=== PATIENT | male | born 1960 ===

== ENCOUNTER 2017-07-31 10:57 | Inpatient (IN) | payer MEDICAID ==
[~2017-07-31] VITALS: Ht 185.4 cm; Wt 121.9 kg
[2017-07-31 11:33] VITALS: BP 106/68
--- NOTE | 2017-07-31 11:54 | PM&R Post Admission Assessment ---
Post Admission Physician Asses The preadmission screen agrees with the post admission assessment that the patient is a good candidate for inpatient rehabilitation. The patient will have a comprehensive program of inpatient rehabilitation with a goal of maximizing level of functional independence prior to discharge home with family. The patient will have PT/OT ninety minutes per day, each discipline, five days a week for gait, strengthening, conditioning, balance, ADLs, any patient/family/caregiver training as necessary. Speech therapy to do cognitive assessment and treat as indicated. Rehabilitation nursing to assist with bowel, bladder, skin, wound care, medication administration, pain management. Coil Placer to assist with discharge planning, community reentry. SCD's for DVT prophylaxis as appropriate as the patient has a left BKA.. He appears to be well motivated to participate in three hours of therapy a day. He should be able to tolerate three hours of therapy a day from a medical and surgical standpoint. He should benefit from the three hours of therapy a day. He has a reasonable discharge plan, reasonable discharge rehabilitation goals and a supportive family. He has various comorbidities that need to be closely monitored with medications and treatments adjusted on a daily basis as needed. These include: PVD s/p RT BKA CAD s/p TX AAA HTN Tobaccoism Bilateral Corotid artery stenosis Barriers to discharge for this patient who had been independent prior to this are for him to be modified independent to supervision for ADLs and mobility skills prior to discharge home with [family], so as to lessen the burden of the caregivers. Risks for this patient include: 1. Fall 2. Fracture 3. DVT 4. Pulmonary embolism 5. Wound infection 6. Skin breakdown 7. Contractures 8. Poorly controlled pain 9. Urinary retention 10. UTI 11. Respiratory infection 12. Aspiration 13. Recurrent angina 14. Poorly controlled HTN Estimated Length of Stay: 17 days Prognosis: Rehab prognosis appears good for goal of discharge home with family modified independent to supervision for ADLs and mobility skills at the w/c level of function due to rt BKA. PAUL DODSON MD Jul 31, 2017 11:54
--- NOTE | 2017-07-31 12:13 | Physical Therapy Evaluation ---
PT Evaluation-General Medical Diagnosis Admission Date Jul 31, 2017 at 11:31 Medical Diagnosis: CABG s/p [place] Onset Date: Jul 25, 2017 Therapy Diagnosis Therapy Diagnosis: Impaired functional mobility and activity tolerance Precautions Precautions/Isolations: Fall Prevention, Standard Precautions Sternal precautions: no pushing, pulling, lifting, or raising arms overheard. Referral Physician: Kevin Jain MD Reason for Referral: Evaluation/Treatment Medical History Additional Medical History PAST MEDICAL HISTORY: Peripheral vascular disease with claudication, status post fem-fem bypass by Dr. Worrell on 12/01/2014, abdominal aortic aneurysm without rupture, hypertension, tobaccoism, bilateral carotid artery stenosis, chest pain due to myocardial ischemia, unstable angina pectoris. Right AKA Reviewed History: Yes Social History Home: Apartment Current Living Status: Alone Entry Into Home: Level Entry PT Steps Into Home: 0 PT Steps Inside Home: 0 Pt owns a cat Prior/Core FIM Prior Level of Function Functional [place] Measure 0=Not Assessed/NA 4=Minimal Assistance 1=Total Assistance 5=Supervision or Setup 2=Maximal Assistance 6=Modified [place] 3=Moderate Assistance 7=Complete [place] Bed Mobility: 6 Transfers (B,C,W/C) (FIM): 6 Gait: 6 Locomotion: 6 Pt utilizes axillary and forearm crutches due to above knee amputation at the age of 15. PT Evaluation-Current Subjective Pt is sitting in [facility] in room pre eval and c/o pain at 7/10 and reports that it will increase once pain medication wears off. Pt agrees to PT. Pain Numeric Pain Scale: 7 Location Body Site: Chest Pt/Family Goals [place] at home Objective Patient Orientation: Normal For Age ROM/Strength ROM Lower Extremities Grossly WFL bilaterally Strenght Lower Extremities LLE: 5/5 grossly RLE: Hip flexion not assessed due to pain Neuromuscular (Tone, Coordination, Reflexes) NT Sensory Vision: Wears Glasses Hearing: Functional Sensation Left Lower Extremity: Impaired Sensation Lower Extremities Pt demonstrates numbness in the L5 dermatome when assessed at the anterior sharp Transfers Functional [place] Measure 0=Not Assessed/NA 4=Minimal Assistance 1=Total Assistance 5=Supervision or Setup 2=Maximal Assistance 6=Modified [place] 3=Moderate Assistance 7=Complete IndependenceIRFPAI Quality Coding Scale 6 Independent with activity with or without an assistive device 5 Patient requires set up or clean up by helper. Patient completes activity by themselves 4 Supervision or touching assist (CGA). [place] provide cues , steadying assist 3 The helper provides less than half the effort to complete the activity 2 The helper provides more than half the effort to complete the activity 1 Dependent. The helper does all the effort to complete an activity 7 Patient refused to complete or attempt activity 9 The patient did not perform the activity before the current illness or injury 88 Not attempted due to Medical conditions or safety concerns Transfers (B, C, W/C) (FIM): 4 Scootin Rollin Roll Left to Right (QC): 4 Supine to/from Sit: 5 Sit to/from Stand: 5 Sit to Lying (QC): 4 Lying to Sitting/Side of Bed(Q: 4 Sit to Stand (QC): 4 Chair/Jhk-ez-Dcgnr Xfer(QC): 4 Pt requires SBA for all bed mobility and transfers. Pt refuses to be touched to aid in assistance. Pt understands sternal precautions but does not follow them. Gait Does the Patient Walk?: No and Walking Goal NOT indicated Distance (FIM): 0=does not occure Walk 10 feet (QC): 88 Walk 50 ft with 2 Turns(QC): 88 Walk 150 ft (QC): 88 Walking 10ft/uneven surface-QC: 88 Wheelchair Training Does the Pt Use a Wheelchair?: Yes Wheelchair (FIM): 5 Wheelchair Distance (FIM): 3=150 ft Distance: 150 feet Wheelchair Level of Assist: 5 Wheel 50 ft with 2 turns (QC): 5 Wheel 150 ft (QC): 5 Type of Wheelchair: Manual Stairs 1 Step (curb) (QC): 88 4 Steps (QC): 88 12 Steps (QC): 88 If not tested on admit;explain Sternal precautions limit patient from using stairs and pt reports pain at 7/10 Balance Sitting Static: Normal Sitting Dynamic: Normal Standing Static: Good Standing Dynamic: Good Picking up an Object (QC): 88 Assessment/Needs Pt requires frequent breaks when propelling WCH due to pain and fatigue. Pt reports increased pain. Pt refuses aid from PT and does not follow precautions during transfers and bed mobility. Rehab Potential: Fair PT Short Term Goals Short Term Goals Time Frame: Aug 07, 2017 Transfers (B,C,W/C) (FIM): 6 Wheelchair (FIM): 6 Wheelchair Distance: 200 feet Wheelchair Level of Assist: 6 PT Jail Goals Jail Goals PT Calibration Checker Goals Time Frame: Aug 14, 2017 Transfers (B,C,W/C) (FIM): 6 Sit to Lying (QC): 6 Lying-Sitting on Side/Bed(QC): 6 Sit to Stand (QC): 6 Rollin Roll Left to Right (QC): 6 Chair/Egq-sq-Kycbc Xfer(QC): 6 Car Transfer (QC): 6 Does the Patient Walk: Yes Gait (FIM): 2 Distance: 50' Walk 10 feet (QC): 6 Walk 10ft-Uneven Surface(QC): 6 Walk 50ft with 2 Turns (QC): 6 Gait Level of Assist: 6 Does the Pt use WC or Scooter?: Yes Wheelchair (FIM): 6 Distance: 300 feet Wheelchair Level of Assist: 6 Wheel 50 feet with 2 turns (QC: 6 PT Plan Problem List Problem List: Activity Tolerance, Functional Strength, Safety, Balance, Gait, Transfer, Bed Mobility, ROM Treatment/Plan Treatment Plan: Continue Plan of Care Treatment Plan: Bed Mobility, Education, Functional Activity Agustín, Functional Strength, Group Therapy, Gait, Safety, Therapeutic Exercise, Transfers Treatment Duration: Aug 21, 2017 Frequency: At least 5 of 7 days/Wk (IRF) Estimated Hrs Per Day: 1.5 hours per day Patient and/or Family Agrees t: Yes Safety Risks/Education Patient Education: Transfer Techniques, Reviewed Precautions, Correct Positioning, W/C Management, Disease Process, Safety Issues Teaching Recipient: Patient Teaching Methods: Demonstration, Discussion Response to Teaching: Unable to Return Demonstration, Reinforcement Needed Discharge Recommendations Plan Pt will perform bed mobility and transfer training, functional mobility and activity tolerance training, balance training and education, and gait and stair training in order to promote independence at home. Therapy D/C Recommendations: Home w/ Family Support Time/GCodes Time In: 1130 Time Out: 1200 Total Billed Treatment Time: 30 Total Billed Treatment 1 visit 30 min JUDIE MALDONADO PT Jul 31, 2017 12:13
[2017-07-31] MEDS: HYDROcodone/APAP 10 MG/325 MG (LORTAB) TAB PO PRN ×2 (13:23→19:11)
[2017-07-31] MEDS: IBUPROFEN 800 MG (MOTRIN) TAB PO SCH ×3 (14:45→23:33)
--- NOTE | 2017-07-31 14:58 | Physical Therapy Daily Note ---
PT Daily Note-Current Subjective Agreeable to PT. Reports He is tired this afternoon. Mental Status Patient Orientation: Person, Place, Time, Situation Transfers Functional [place] Measure 0=Not Assessed/NA 4=Minimal Assistance 1=Total Assistance 5=Supervision or Setup 2=Maximal Assistance 6=Modified [place] 3=Moderate Assistance 7=Complete IndependenceIRFPAI Quality Coding Scale 6 Independent with activity with or without an assistive device 5 Patient requires set up or clean up by helper. Patient completes activity by themselves 4 Supervision or touching assist (CGA). [place] provide cues , steadying assist 3 The helper provides less than half the effort to complete the activity 2 The helper provides more than half the effort to complete the activity 1 Dependent. The helper does all the effort to complete an activity 7 Patient refused to complete or attempt activity 9 The patient did not perform the activity before the current illness or injury 88 Not attempted due to Medical conditions or safety concerns Sit to supine with use of bedrail with SBA. Exercises Seated Therapy Exercises: Ankle pumps, Long arc quads, Hip flexion Seated Reps: 15 (To faciliate LE strength and circulation LE. ) Treatments Co treatment with OT for 30 minutes to complete ADL's and self care; PT addressed functional sit to stand transfers while OT addressed cleansing of [place] area . Worked on seated trunk control and balance as well. Assessment Pt requires frequent cues for safety and awareness of precautions. Pt seems to be a bit impulsive. Pt is motivated and cooperative with therapy. PT Short Term Goals Short Term Goals Time Frame: Aug 07, 2017 Transfers (B,C,W/C) (FIM): 6 Wheelchair (FIM): 6 Wheelchair Distance: 200 feet Wheelchair Level of Assist: 6 PT Senior Care Goals Lubrication Supervisor Goals PT Senior Care Goals Time Frame: Aug 21, 2017 Transfers (B,C,W/C) (FIM): 6 Sit to Lying (QC): 6 Lying-Sitting on Side/Bed(QC): 6 Sit to Stand (QC): 6 Rollin Roll Left to Right (QC): 6 Chair/Bik-st-Rcdvm Xfer(QC): 6 Car Transfer (QC): 6 Does the Patient Walk: Yes Gait (FIM): 6 Distance: 150 feet Walk 10 feet (QC): 6 Walk 10ft-Uneven Surface(QC): 6 Walk 50ft with 2 Turns (QC): 6 Walk 150 ft (QC): 6 Gait Level of Assist: 6 Gait Assistive Device: Crutches Forearm, Crutches Does the Pt use WC or Scooter?: Yes Wheelchair (FIM): 6 Distance: 300 feet Wheelchair Level of Assist: 6 Wheel 50 feet with 2 turns (QC: 6 Stairs (FIM): 2 # of Steps: 4 1 Step (curb) (QC): 6 4 Steps (QC): 6 12 Steps (QC): 6 Stairs Level Of Assist: 6 Picking up an Object (QC): 6 PT Plan Problem List Problem List: Activity Tolerance, Functional Strength, Safety, Balance, Transfer, Bed Mobility Treatment/Plan Treatment Plan: Continue Plan of Care Treatment Plan: Bed Mobility, Education, Functional Activity Agustín, Functional Strength, Group Therapy, Gait, Safety, Therapeutic Exercise, Transfers Treatment Duration: Aug 21, 2017 Frequency: At least 5 of 7 days/Wk (IRF) Estimated Hrs Per Day: 1.5 hours per day Patient and/or Family Agrees t: Yes Safety Risks/Education Patient Education: Transfer Techniques, Safety Issues Teaching Recipient: Patient Teaching Methods: Demonstration, Discussion Response to Teaching: Reinforcement Needed Time/GCodes Time In: 1400 Time Out: 1445 Total Billed Treatment Time: 45 Total Billed Treatment visit FA 45 BARNEY ROLLINS PT Jul 31, 2017 14:58
--- NOTE | 2017-07-31 15:03 | Occupational Therapy Eval ---
OT Evaluation-General/PLF Medical Diagnosis Admission Date Jul 31, 2017 at 11:31 Medical Diagnosis: CABG s/p [place] Onset Date: Jul 25, 2017 Therapy Diagnosis Therapy Diagnosis: Weakness, Decreased ADL skills Precautions Precautions/Isolations: Fall Prevention, Standard Precautions Weight Bear Status Weight Bearing Restriction: Weight Bearing/Tolerated Referral Physician: Kevin Jain MD Referral Reason: Activity Tolerance, Self Care, Evaluation/Treatment, Strengthening/ROM Medical History Additional Medical History AAA, anxiety, depression, crushed vertebrae, amputation of right LE, injury to right hand. Current History Pt. had blockage. Received CABG x 3 Reviewed History: Yes Social History Home: Apartment Current Living Status: Alone Entry Into Home: Level Entry Steps Into Home: 0 Steps Inside Home: 0 ADL-Prior Level of Function ADL PLOF Comments Pt. was independent with daily tasks previous to this surgery. Pt. uses forearm crutches typically. 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 Drive Self: Yes OT Current Status Subjective Pt. reports pain in right upper thigh from incision and chest incision. Appearance Pt. in bed. Agrees to work with OT. Mental Status/Objective Patient Orientation: Person, Place, Time, Situation Current Glasses/Contacts: Yes Hand Dominance: Right Upper Extremity ROM NT due to sternal precautions. Upper Extremity Strength NT due to sternal precautions. Pt. has limited ROM to right hand due to old accident. However, he uses right hand for all purposes. ADL-Treatment Functional [place] Measure 0=Not Assessed/NA 4=Minimal Assistance 1=Total Assistance 5=Supervision or Setup 2=Maximal Assistance 6=Modified [place] 3=Moderate Assistance 7=Complete IndependenceIRFPAI Quality Coding Scale 6 Independent with activity with or without an assistive device 5 Patient requires set up or clean up by helper. Patient completes activity by themselves 4 Supervision or touching assist (CGA). [place] provide cues , steadying assist 3 The helper provides less than half the effort to complete the activity 2 The helper provides more than half the effort to complete the activity 1 Dependent. The helper does all the effort to complete an activity 7 Patient refused to complete or attempt activity 9 The patient did not perform the activity before the current illness or injury 88 Not attempted due to Medical conditions or safety concerns Bathing (FIM): 3 (Mod assist overall to spongebathe to thoroughly wash all parts.) Shower/Bathe Self (QC): 3 Lower Body Dressing (FIM): 1 (Dependent to doff/don left sock.) Lower Body Dressing (QC): 1 On/Off Footwear (QC): 1 Transfers (B, C, W/C) (FIM): 4 (CGA to stand holding bedrail and wheelchair.) Other Treatments OT/PT completed partial co-tx due to pt fatigue level. Ot focused on ADL skills while PT focused on transfer training and mobility. Co-treat lasted 1400 -1430. Education OT Patient Education: Modified ADL techniques, Progress toward Goal/Update tx plan, Purpose of tx/functional activities, Reviewed precautions, Rehab process, Transfer techniques Teaching Recipient: Patient Teaching Methods: Demonstration, Discussion Response to Teaching: Verbalize Understanding, Return Demonstration OT Short Term Goals Short Term Goals Time Frame: Aug 07, 2017 Eating(FIM): 5 Grooming(FIM): 5 Bathing(FIM): 4 Upper Body Dressing(FIM): 5 Lower Body Dressing(FIM): 4 Toileting(FIM): 4 Transfers (B,C,W/C) (FIM): 6 Toilet/Commode Transfer(FIM): 4 Shower Transfer(FIM): 4 Additional Short Term Goals: 1-Demonstrate ADL Tasks, 2-Verbalize Understanding , 3-ImproveStrength/Agustín 1=Demonstrate adherence to instructed precautions during ADL tasks. 2=Patient will verbalize/demonstrate understanding of assistive devices/ modifications for ADL. 3=Patient will improve strength/tolerance for activity to enable patient to perform ADL's. OT Nursing Home Goals Building Carpenter Goals Time Frame: Aug 21, 2017 Eating (FIM): 6 Eating (QC): 6 Groomin Oral Hygiene (QC): 6 Bathing(FIM): 5 Shower/Bathe Self (QC): 5 Upper Body Dressing(FIM): 6 Upper Body Dressing (QC): 6 Lower Body Dressing(FIM): 6 Lower Body Dressing (QC): 6 On/Off Footwear (QC): 6 Toileting(FIM): 6 Toileting Hygiene (QC): 6 Transfers (B,C,W/C) (FIM): 6 Toilet/Commode Transfer(FIM): 6 Toilet/Commode Transfer (QC): 6 Shower Transfer(FIM): 5 Additional Goals: 1-Demonstrate ADL Tasks, 2-Verbalize Understanding, 3- ImproveStrength/Agustín 1=Demonstrate adherence to instructed precautions during ADL tasks. 2=Patient will verbalize/demonstrate understanding of assistive devices/ modifications for ADL. 3=Patient will improve strength/tolerance for activity to enable patient to perform ADL's. OT Education/Plan Problem List/Assessment Assessment: Decreased Activ Tolerance, Dependent Transfers, Impaired Bed Mobility, Impaired Funct Balance, Impaired I ADL's, Impaired Self-Care Skills, Restricted Funct UE ROM Discharge Recommendations Plan/Recommendations: Continue POC Therapy D/C Recommendations: Home Independently, Occupational Therapy Home Care Target Placement Home with home health care. Treatment Plan/Plan of Care Treatment,Training & Education: Yes Patient would benefit from OT for education, treatment and training to promote independence in ADL's, mobility, safety and/or upper extremity function for ADL' s. Plan of Care: ADL Retraining, Functional Mobility, Group Exercise/Act as Ind, UE Funct Exercise/Act Treatment Duration: Aug 21, 2017 Frequency: At least 5 of 7 days/Wk (IRF) Estimated Hrs Per Day: 1.5 hours per day Agreement: Yes Rehab Potential: Good Time/GCodes Start Time: 13:00 Stop Time: 14:30 Total Time Billed (hr/min): 90 Billed Treatment Time 1, EVM x 30minutes, ADL x 60minutes BRUCE FUENTES OT Jul 31, 2017 15:03
--- NOTE | 2017-07-31 15:24 | ST Cognitive Linguistic Eval ---
Speech Evaluation-General Medical Diagnosis CABG s/p [place] Onset Date: Jul 25, 2017 Therapy Diagnosis Therapy Diagnosis: Cognitive Linguistic Skills WNL Precautions Precautions/Isolations: Fall Prevention, Standard Precautions Referral Referring Physician: Dr. Kevin Jain Reason for Referral: Evaluation/Treatment Cognitive Evaluation Medical History Reviewed History: Yes Social History Current Living Status: Alone Speech PLF-Current Status Prior Level of Function The patient denied prior challenges with his speech, language, or cognition. Subjective The patient was seated upright in bed upon entrance. The patient greeted the clinician appropriately and was agreeable to participation in the cognitive evaluation. Language Eval: Auditory Comprehends Simple Yes/No Ques: Functional Indent/Objects [place]: Functional Ident/Pics in [place]: Functional Follows 1-Step Commands: Functional Follows Complex Directions: Functional Follows General Conversations: Functional Language Eval: Verbal Language Completes Spontaneous Greeting: Functional Produces Auto, Serial Info: Functional Imitates Simple Words/Phrases: Functional Word Finding: Functional Requests Basic Needs: Functional States Basic Personal Info: Functional Expresses Complex Ideas: Functional Cognitive Patient Orientation The patient was independently oriented to self, location, month, day of week, and year. Objective Cognitive Domain Attention: WNL Memory: WNL Problem Solving: Functional Objective Impression The patient demonstrated cognitive linguistic skills WNL. Communication/Social Cognition Comprehension: 6 Expression: 6 Social Interaction: 6 Problem Solvin Memory: 6 Speech Patient Assess Expression of Ideas/Wants: Expression (4) Understanding [place] Content: Understands (4) Brief Interview-Mental Status: Yes Repetition of Three Words: Three (3) Temporal Orientation: Year: Correct (3) Temporal Orientation: Month: Accurate within 5 days(2) Temporal Orientation: Day: Correct (1) Recall : Wear to say "Sock": Yes,after cueing (1) Recall : Color: Yes, no cue required (2) Recall : Bed: Yes, no cue required (2) Speech-Plan Treatment Plan Speech Therapy Treatment Plan: Discontinue ST Evaluation, only. Frequency: Modified Program (IRF) Estimated Hrs Per Day: Other Rehab Potential: Good Safety Risks/Education Teaching Recipient: Patient Teaching Methods: Discussion Response to Teaching: Verbalize Understanding Education Topics Provided: Results, Recommendations, Plan of Care Time Speech Therapy Time In: 15:03 Speech Therapy Time Out: 15:18 Total Billed Time: 15 Billed Treatment Time 1S[address] ST Feb 15, 2018 15:24
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
[2017-07-31] MEDS ORDERED: MUPIROCIN 2% OINT 22 GM (BACTROBAN) TUBE TOP PRN (16:45)
[2017-07-31] MEDS ORDERED: INFLUENZA TRIvalent 2017-2018 0.5 ML/45 MCG SYR IM ONE (16:45)
[2017-07-31 18:15] VITALS: BP 111/72
[2017-07-31] MEDS: ZOLPIDEM 5 MG (AMBIEN) TAB PO SCH (20:49)
[2017-07-31] MEDS: meTOprolol TARTRATE 25 MG (LOPRESSOR) TABLET PO SCH (20:49)
[2017-07-31] MEDS: ATORVASTATIN 40 MG (LIPITOR) TABLET PO SCH (20:49)
[2017-07-31 20:51] VITALS: BP 124/64
[2017-08-01] MEDS: HYDROcodone/APAP 10 MG/325 MG (LORTAB) TAB PO PRN ×4 (02:41→16:41)
[2017-08-01 06:03] VITALS: BP 126/74
[2017-08-01] MEDS: IBUPROFEN 800 MG (MOTRIN) TAB PO SCH ×3 (06:13→18:00)
[2017-08-01] MEDS: CLOPIDOGREL 75 MG (PLAVIX) TABLET PO SCH (07:55)
[2017-08-01] MEDS: meTOprolol TARTRATE 25 MG (LOPRESSOR) TABLET PO SCH ×2 (07:55→20:58)
[2017-08-01] MEDS: lisINopril 20 MG (PRINIVIL) TABLET PO SCH (07:55)
[2017-08-01] MEDS: ASPIRIN E.C. 81 MG (ECOTRIN) TAB PO SCH (07:56)
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
--- NOTE | 2017-08-01 09:30 | PM & R (SOAP) Progress Note ---
Subjective Time Seen by Provider: 08:00 Subjective/Events-last exam Patient was seen in his room this AM Patient SBA for transfers patient reports no BM for several dyas will add bowel meds see orders. Review of Systems Musculoskeletal: other (sternotomy site pain) Objective Exam Last Set of Vital Signs Vital Signs Date Time Temp Pulse Resp B/P (MAP) Pulse Ox O2 Delivery O2 Flow Rate FiO2 08/01/17 08:56 Room Air 08/01/17 06:03 98.6 77 20 126/74 (91) 94 Capillary Refill : Less Than 3 Seconds I&O Intake and Output 08/01/17 00:00 Intake Total 400 ml Output Total 1050 ml Balance -650 ml Intake Oral 400 ml Output Urine Total 1050 ml Daily Weight Change Unsure General: Alert, Oriented X3, Cooperative, No Acute Distress HEENT: Atraumatic, PERRLA, EOMI, Mucous Memb Moist/[place] Neck: Supple, No JVD Lungs: Clear to Auscultation Heart: Regular Rate Abdomen: Normal Bowel Sounds, Soft, No Tenderness Extremities: Other (RT BKA) Skin: Other (Sternotomy site healing) Neuro: Other (Good strength but some guarding due to Sternotomy incision site) Assessment/Plan Assessment CAD s/p Cabg times 3 DR sheyla Hearnplin S/P NSTEMI TRaumatic amputaion rt BKA age 14 yo AAA without rupture HTN controlled Tobaccoism Bilateral Carotid Artery D Old rt hand injury Postop constipation Plan Continue PT/OT/Pain management /Wound care Sternotomy precautions Adjust bowel meds-see orders. PAUL DODSON MD Aug 01, 2017 09:30
[2017-08-01] MEDS ORDERED: MILK OF MAGNESIA 400 MG/5 ML 30 ML UDC PO PRN (09:45)
[2017-08-01] MEDS ORDERED: BISACODYL 10 MG SUPP (DULCOLAX) PR PRN (09:45)
--- NOTE | 2017-08-01 10:02 | Physical Therapy Daily Note ---
PT Daily Note-Current Subjective Pt. explains that he is frustrated by being so limited . Min pain c/o stating he only really hurts when he tries to straighten out his torso, has to go slowly Pain Numeric Pain Scale: 2 Location: Medial Location Body Site: Chest (incisional) Pain Description: Dull Mental Status Patient Orientation: Normal For Age Transfers Functional [place] Measure 0=Not Assessed/NA 4=Minimal Assistance 1=Total Assistance 5=Supervision or Setup 2=Maximal Assistance 6=Modified [place] 3=Moderate Assistance 7=Complete IndependenceIRFPAI Quality Coding Scale 6 Independent with activity with or without an assistive device 5 Patient requires set up or clean up by helper. Patient completes activity by themselves 4 Supervision or touching assist (CGA). [place] provide cues , steadying assist 3 The helper provides less than half the effort to complete the activity 2 The helper provides more than half the effort to complete the activity 1 Dependent. The helper does all the effort to complete an activity 7 Patient refused to complete or attempt activity 9 The patient did not perform the activity before the current illness or injury 88 Not attempted due to Medical conditions or safety concerns Transfers (B, C, W/C) (FIM): 5 Scootin Rollin Supine to/from Sit: 6 Sit to/from Stand: 5 Bed to/from Chair: 5 SPTs bed tp w/c x3, SBA Gait Training Does the Patient Walk?: No and Walking Goal NOT indicated Gait (FIM): 1 Wheelchair Training Does the Pt Use a Wheelchair?: Yes Wheelchair (FIM): 5 Wheelchair Distance: 3=150 ft Wheelchair Level of Assist: 5 Type of Wheelchair: Manual Exercises Supine Ex: Ankle pumps, Quad Set, Rolling, Glut sets, Heel Slides, Short Arc Quads, Scooting, Straight leg raise, Hip abd/add Supine Reps: 20 Treatments pt. in flexed trunk position in bed, worked on slowly coming to near full supine , 7degrees flexion at HOB with good tolerance Assessment Current Status: Good Progress needs many reminders re: safety and restrictions for UE use PT Short Term Goals Short Term Goals Time Frame: Aug 07, 2017 Transfers (B,C,W/C) (FIM): 6 Wheelchair (FIM): 6 Wheelchair Distance: 200 feet Wheelchair Level of Assist: 6 PT Certified Maintenance Welder Goals Certified Maintenance Welder Goals PT Certified Maintenance Welder Goals Time Frame: Aug 14, 2017 Transfers (B,C,W/C) (FIM): 6 Sit to Lying (QC): 6 Lying-Sitting on Side/Bed(QC): 6 Sit to Stand (QC): 6 Rollin Roll Left to Right (QC): 6 Chair/Ntz-tv-Jsteo Xfer(QC): 6 Car Transfer (QC): 6 Does the Patient Walk: Yes Gait (FIM): 2 Distance: 50' Walk 10 feet (QC): 6 Walk 10ft-Uneven Surface(QC): 6 Walk 50ft with 2 Turns (QC): 6 Gait Level of Assist: 6 Does the Pt use WC or Scooter?: Yes Wheelchair (FIM): 6 Distance: 300 feet Wheelchair Level of Assist: 6 Wheel 50 feet with 2 turns (QC: 6 PT Plan Treatment/Plan Treatment Plan: Continue Plan of Care Treatment Plan: Bed Mobility, Education, Functional Activity Agustín, Functional Strength, Group Therapy, Gait, Safety, Therapeutic Exercise, Transfers Treatment Duration: Aug 21, 2017 Frequency: At least 5 of 7 days/Wk (IRF) Estimated Hrs Per Day: 1.5 hours per day Patient and/or Family Agrees t: Yes Safety Risks/Education Patient Education: Transfer Techniques, Correct Positioning, W/C Management, Safety Issues Teaching Recipient: Patient Teaching Methods: Demonstration, Discussion Response to Teaching: Verbalize Understanding, Return Demonstration, Reinforcement Needed Time/GCodes Time In: 900 Time Out: 1000 Total Billed Treatment Time: 60 Total Billed Treatment 1,EX25m,FA15m,WC20m G Codes Necessary: CHRISTINA Ramachandran PTA Aug 01, 2017 10:02
--- NOTE | 2017-08-01 11:30 | Occupational Ther Daily Note ---
OT Current Status-Daily Note Subjective Pt alert, sitting in w/c. Pt is anxious about moving to much and hurting. Pt agreed to therapy. Mental Status/Objective Patient Orientation: Person, Place, Time, Situation Functional [place] Measure 0=Not Assessed/NA 4=Minimal Assistance 1=Total Assistance 5=Supervision or Setup 2=Maximal Assistance 6=Modified [place] 3=Moderate Assistance 7=Complete [place] ADL-Treatment Functional [place] Measure 0=Not Assessed/NA 4=Minimal Assistance 1=Total Assistance 5=Supervision or Setup 2=Maximal Assistance 6=Modified [place] 3=Moderate Assistance 7=Complete IndependenceIRFPAI Quality Coding Scale 6 Independent with activity with or without an assistive device 5 Patient requires set up or clean up by helper. Patient completes activity by themselves 4 Supervision or touching assist (CGA). [place] provide cues , steadying assist 3 The helper provides less than half the effort to complete the activity 2 The helper provides more than half the effort to complete the activity 1 Dependent. The helper does all the effort to complete an activity 7 Patient refused to complete or attempt activity 9 The patient did not perform the activity before the current illness or injury 88 Not attempted due to Medical conditions or safety concerns Eating (FIM): 7 (Per pt report, pt is able to set own self up and use regular utensils.) Eating (QC): 6 Grooming (FIM): 6 (Pt maneuvers w/c into bathroom and completes own grooming.) Oral Hygiene (QC): 6 Bathing (FIM): 4 (Sponge bath. Assist for lower legs and feet. Pt is able to stand to cleanse buttocks when holding onto stable surface. Pt cleanses all other area in sitting.) Bathing Location: L Arm, R Arm, L Upper Leg, R Upper Leg, Chest, Abdomen, Buttocks, Perineal Area Shower/Bathe Self (QC): 3 Upper Body (FIM): 5 (After set up, pt able to complete by self.) Upper Body Dressing (QC): 5 Lower Body Dressing (FIM): 4 (Due to inability to lean forward, pt requires min A to don/doff over feet. Pt able to stand and hike pants over hips with SBA.) Lower Body Dressing (QC): 3 Toileting (FIM): 5 (SBA to manipulate clothing, pt cleanses self in sitting.) Toileting Hygiene (QC): 4 Toilet/Commode Transfer (FIM): 5 (SBA using BSC to elevate toilet, grabbars and w/c.) Toilet Transfer (QC): 4 Pt refused shower at this time though is willing to complete sponge bath. Pt required modification to BSC due to increased pain when sitting on toilet from stitches on upper legs. Pt transferred from w/c to bed with SBA. After therapy , pt sitting EOB by self. Call light/phone in reach. All needs met in room. OT Short Term Goals Short Term Goals Time Frame: Aug 07, 2017 Eating(FIM): 5 Grooming(FIM): 5 Bathing(FIM): 4 Upper Body Dressing(FIM): 5 Lower Body Dressing(FIM): 4 Toileting(FIM): 4 Transfers (B,C,W/C) (FIM): 6 Toilet/Commode Transfer(FIM): 4 Shower Transfer(FIM): 4 Additional Short Term Goals: 1-Demonstrate ADL Tasks, 2-Verbalize Understanding , 3-ImproveStrength/Agustín 1=Demonstrate adherence to instructed precautions during ADL tasks. 2=Patient will verbalize/demonstrate understanding of assistive devices/ modifications for ADL. 3=Patient will improve strength/tolerance for activity to enable patient to perform ADL's. OT Correction Goals Correction Goals Time Frame: Aug 21, 2017 Eating (FIM): 6 Eating (QC): 6 Groomin Oral Hygiene (QC): 6 Bathing(FIM): 5 Shower/Bathe Self (QC): 5 Upper Body Dressing(FIM): 6 Upper Body Dressing (QC): 6 Lower Body Dressing(FIM): 6 Lower Body Dressing (QC): 6 On/Off Footwear (QC): 6 Toileting(FIM): 6 Toileting Hygiene (QC): 6 Transfers (B,C,W/C) (FIM): 6 Toilet/Commode Transfer(FIM): 6 Toilet/Commode Transfer (QC): 6 Shower Transfer(FIM): 5 Additional Goals: 1-Demonstrate ADL Tasks, 2-Verbalize Understanding, 3- ImproveStrength/Agustín 1=Demonstrate adherence to instructed precautions during ADL tasks. 2=Patient will verbalize/demonstrate understanding of assistive devices/ modifications for ADL. 3=Patient will improve strength/tolerance for activity to enable patient to perform ADL's. OT Education/Plan Discharge Recommendations Plan/Recommendations: Continue POC Treatment Plan/Plan of Care Patient would benefit from OT for education, treatment and training to promote independence in ADL's, mobility, safety and/or upper extremity function for ADL' s. Plan of Care: ADL Retraining, Functional Mobility, Group Exercise/Act as Ind, UE Funct Exercise/Act Treatment Duration: Aug 21, 2017 Frequency: At least 5 of 7 days/Wk (IRF) Estimated Hrs Per Day: 1.5 hours per day Agreement: Yes Rehab Potential: Good Time/GCodes Start Time: 10:00 Stop Time: 11:30 Total Time Billed (hr/min): 90 Billed Treatment Time 1 visit-ADL 4 (60 min) FA 2 (30 min) BARNEY PEREZ Aug 01, 2017 11:30
[2017-08-01] MEDS ORDERED: ASPI-983 PO (13:26)
[2017-08-01] MEDS ORDERED: IBUP-1780 PO (13:26)
[2017-08-01] MEDS ORDERED: ALPR0.5T7 PO (13:26)
[2017-08-01] MEDS ORDERED: HYDR-3820 PO (13:26)
[2017-08-01] MEDS ORDERED: AMLO1CAP9 PO (13:26)
[2017-08-01] MEDS ORDERED: RANI150T90 PO (13:26)
[2017-08-01] MEDS ORDERED: LISI-552 PO (13:26)
[2017-08-01] MEDS ORDERED: ZOLP10TA5 PO (13:26)
--- NOTE | 2017-08-01 14:49 | Therapy Group Daily Note ---
Therapy Daily Group Note Patient Education Topic Other List Below (safety, memory ans strategies) Exercises LE Seated Exercise, UE Exercise Other/Notes Pt. participated in group PT OT session this date. Pt. came to/from via w/c with min assist. Pts. 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 Focus of education was on memory and safety as well as activity using images . Pts. also lead LE and UE seated exercises using written illustrated exercise cards. Pts. shared their personal experiences with memory strategies etc. Pt. back to his room , with SBA to bed. Baker at hand. Start Time: 13:00 Stop Time: 14:20 Total Billed Treatment Time: 80 Total Billed Treatment 1,GRP CHRISTINA MARTINEZ IT PROGRAM ENGAGEMENT DIRECTOR Aug 01, 2017 14:49
[2017-08-01 18:50] VITALS: BP 111/74
[2017-08-01 20:54] VITALS: BP 126/62
[2017-08-01] MEDS: ATORVASTATIN 40 MG (LIPITOR) TABLET PO SCH (20:58)
[2017-08-01] MEDS: ZOLPIDEM 5 MG (AMBIEN) TAB PO SCH (20:58)
[2017-08-01] MEDS: SENNA W/DOCUSATE (SENOKOT S) TABLET PO SCH (20:58)
[2017-08-02] MEDS: IBUPROFEN 800 MG (MOTRIN) TAB PO SCH ×5 (00:17→23:11)
[2017-08-02] MEDS: HYDROcodone/APAP 10 MG/325 MG (LORTAB) TAB PO PRN ×3 (00:21→21:53)
[2017-08-02 04:00] VITALS: BP 124/79
[2017-08-02 05:40] VITALS: BP 124/79
[2017-08-02] MEDS ORDERED: NITROGLYCERIN 0.4 MG SL TABS BTL 25'S SL ONE (06:30)
[2017-08-02] MEDS: ASPIRIN E.C. 81 MG (ECOTRIN) TAB PO SCH (08:49)
[2017-08-02] MEDS: meTOprolol TARTRATE 25 MG (LOPRESSOR) TABLET PO SCH ×2 (08:49→21:46)
[2017-08-02] MEDS: CLOPIDOGREL 75 MG (PLAVIX) TABLET PO SCH (08:49)
[2017-08-02] MEDS: lisINopril 20 MG (PRINIVIL) TABLET PO SCH (08:49)
[2017-08-02] MEDS: SENNA W/DOCUSATE (SENOKOT S) TABLET PO SCH ×2 (08:49→21:46)
[2017-08-02 18:11] VITALS: BP 118/73
[2017-08-02] MEDS: ATORVASTATIN 40 MG (LIPITOR) TABLET PO SCH (21:46)
[2017-08-02] MEDS: ZOLPIDEM 5 MG (AMBIEN) TAB PO SCH (21:46)
[2017-08-02 21:47] VITALS: BP 140/70
[2017-08-03 05:37] VITALS: BP 105/68
[2017-08-03] MEDS: IBUPROFEN 800 MG (MOTRIN) TAB PO SCH ×4 (06:00→22:19)
[2017-08-03] MEDS: ASPIRIN E.C. 81 MG (ECOTRIN) TAB PO SCH (08:40)
[2017-08-03] MEDS: SENNA W/DOCUSATE (SENOKOT S) TABLET PO SCH ×2 (08:40→20:22)
[2017-08-03] MEDS: meTOprolol TARTRATE 25 MG (LOPRESSOR) TABLET PO SCH ×2 (08:40→20:22)
[2017-08-03] MEDS: lisINopril 20 MG (PRINIVIL) TABLET PO SCH (08:40)
[2017-08-03] MEDS: CLOPIDOGREL 75 MG (PLAVIX) TABLET PO SCH (08:40)
[2017-08-03] MEDS: HYDROcodone/APAP 10 MG/325 MG (LORTAB) TAB PO PRN ×2 (08:41→22:52)
[2017-08-03 17:35] VITALS: BP 115/72
[2017-08-03] MEDS: ATORVASTATIN 40 MG (LIPITOR) TABLET PO SCH (20:22)
[2017-08-03] MEDS: ZOLPIDEM 5 MG (AMBIEN) TAB PO SCH (20:22)
[2017-08-04] MEDS: IBUPROFEN 800 MG (MOTRIN) TAB PO SCH ×4 (05:33→23:40)
[2017-08-04 06:00] VITALS: BP 110/68
--- NOTE | 2017-08-04 08:25 | Progress Note (SOAP) ---
Subjective Time Seen by Provider: 08:25 Subjective/Events-last exam Non-ST elevated [place]. CABG. Patient feeling much better. Patient feels he is 50-60 percent better. Debility Objective Exam Vital Signs Date Time Temp Pulse Resp B/P (MAP) Pulse Ox O2 Delivery O2 Flow Rate FiO2 08/04/17 06:00 97.6 75 18 110/68 (82) 92 Room Air 08/03/17 21:00 Room Air 08/03/17 17:35 97.9 76 18 115/72 (86) 95 Room Air 08/03/17 09:08 Room Air I & O 08/04/17 07:00 Intake Total 1710 ml Output Total 625 ml Balance 1085 ml Capillary Refill : Less Than 3 Seconds General Appearance: No Apparent Distress, WD/WN Assessment/Plan Assessment/Plan Assess & Plan/Chief Complaint None elevated ST [place]. CABG. BKA right leg. History of tobacco usage. Previous AAA surgery. . 08/04/17. Non-ST elevated [place]. CABG. BKA right leg. History of tobacco usage. Previous AAA surgery. Patient feels he is improving Clinical Quality Measures DVT/VTE Risk/Contraindication: Risk Factor Score Per Nursin RFS Level Per Nursing on Admit: 4+=Very High YURY ELIZONDO DO Aug 04, 2017 08:25
[2017-08-04] MEDS: ASPIRIN E.C. 81 MG (ECOTRIN) TAB PO SCH (09:08)
[2017-08-04] MEDS: lisINopril 20 MG (PRINIVIL) TABLET PO SCH (09:08)
[2017-08-04] MEDS: SENNA W/DOCUSATE (SENOKOT S) TABLET PO SCH ×2 (09:09→20:25)
[2017-08-04] MEDS: CLOPIDOGREL 75 MG (PLAVIX) TABLET PO SCH (09:09)
[2017-08-04] MEDS: meTOprolol TARTRATE 25 MG (LOPRESSOR) TABLET PO SCH ×2 (09:09→20:25)
[2017-08-04] MEDS: ALPRAZolam 0.5 MG (XANAX) TAB PO PRN ×2 (12:20→23:50)
--- NOTE | 2017-08-04 12:23 | Physical Therapy Daily Note ---
PT Daily Note-Current Subjective Pt. agrees to Rx, but is very emotional and expressing his frustration this date. States repeatedly that he doesnt understand why he needs to be here and why he cant get up and use his crutches. Pt. cries and states he really cant cry like he'd like to b/c his chest hurts. Pt. states all he really has in this world is his cat and he wants to get back to his cat soon Pain Numeric Pain Scale: 5-Moderate Pain Location: Medial Location Body Site: Chest Comment: soreness per pt. Mental Status Patient Orientation: Person, Place, Time, Eyes Open, Situation Transfers Functional [place] Measure 0=Not Assessed/NA 4=Minimal Assistance 1=Total Assistance 5=Supervision or Setup 2=Maximal Assistance 6=Modified [place] 3=Moderate Assistance 7=Complete IndependenceIRFPAI Quality Coding Scale 6 Independent with activity with or without an assistive device 5 Patient requires set up or clean up by helper. Patient completes activity by themselves 4 Supervision or touching assist (CGA). [place] provide cues , steadying assist 3 The helper provides less than half the effort to complete the activity 2 The helper provides more than half the effort to complete the activity 1 Dependent. The helper does all the effort to complete an activity 7 Patient refused to complete or attempt activity 9 The patient did not perform the activity before the current illness or injury 88 Not attempted due to Medical conditions or safety concerns Transfers (B, C, W/C) (FIM): 5 Scootin Rollin Supine to/from Sit: 6 Sit to/from Stand: 5 Bed to/from Chair: 5 Gait Training Does the Patient Walk?: No and Walking Goal NOT indicated Wheelchair Training Does the Pt Use a Wheelchair?: Yes Wheelchair (FIM): 6 Wheelchair Distance: 3=150 ft (500x2) Wheelchair Level of Assist: 6 Type of Wheelchair: Manual up down ramp forward and back all indep. fig 8s x 7 all indep no incident Exercises Supine Ex: Ankle pumps, Quad Set, Rolling, Glut sets, Heel Slides, Short Arc Quads, Scooting, Straight leg raise, Hip abd/add Supine Reps: 15 Seated Therapy Exercises: Ankle pumps, Sit to stand, Long arc quads, Hip flexion Seated Reps: 15 Treatments SPT TRFs w/c top bed and back both left and right approach no LOB, SBA Assessment Current Status: Good Progress very emotional , states he has had panic ans PTSD for many years, requested "just a little Xanax" PT Short Term Goals Short Term Goals Time Frame: Aug 07, 2017 Transfers (B,C,W/C) (FIM): 6 Wheelchair (FIM): 6 Wheelchair Distance: 200 feet Wheelchair Level of Assist: 6 PT Group Home Goals Group Home Goals PT Group Home Goals Time Frame: Aug 14, 2017 Transfers (B,C,W/C) (FIM): 6 Sit to Lying (QC): 6 Lying-Sitting on Side/Bed(QC): 6 Sit to Stand (QC): 6 Rollin Roll Left to Right (QC): 6 Chair/Mlc-ph-Vcwej Xfer(QC): 6 Car Transfer (QC): 6 Does the Patient Walk: Yes Gait (FIM): 2 Distance: 50' Walk 10 feet (QC): 6 Walk 10ft-Uneven Surface(QC): 6 Walk 50ft with 2 Turns (QC): 6 Gait Level of Assist: 6 Does the Pt use WC or Scooter?: Yes Wheelchair (FIM): 6 Distance: 300 feet Wheelchair Level of Assist: 6 Wheel 50 feet with 2 turns (QC: 6 PT Plan Treatment/Plan Treatment Plan: Continue Plan of Care Treatment Plan: Bed Mobility, Education, Functional Activity Agustín, Functional Strength, Group Therapy, Gait, Safety, Therapeutic Exercise, Transfers Treatment Duration: Aug 21, 2017 Frequency: At least 5 of 7 days/Wk (IRF) Estimated Hrs Per Day: 1.5 hours per day Patient and/or Family Agrees t: Yes Safety Risks/Education Patient Education: Transfer Techniques, Correct Positioning, W/C Management, Disease Process, Safety Issues Teaching Recipient: Patient Teaching Methods: Demonstration, Discussion Response to Teaching: Verbalize Understanding, Return Demonstration long discussion regarding post CABG emotions and anxiety, stressing importance of positive thinking Time/GCodes Time In: 1130 Time Out: 1230 Total Billed Treatment Time: 60 Total Billed Treatment 1,WC25m,FA20m,EX15m G Codes Necessary: CHRISTINA Ramachandran SUPERVISOR SEAMING Aug 04, 2017 12:23
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
--- NOTE | 2017-08-04 14:33 | Therapy Group Daily Note ---
Therapy Daily Group Note Patient Education Topic Other List Below (purpose and practices of Rehab unit) Exercises LE Seated Exercise, UE Exercise, Other (coordination and core as well) Other/Notes Pt. participated in group PT OT session. Pt. came to from group in w/c indep . Pt. very friendly, very social and contributed well to discussion of rehab unit and expectations. Pts. all shared their place of , and favorite rainy day activity, this pt. states he likes a good movie or a nap. Seated U&L ther ex for core as well as coordination . Pt. participated in exercises that he could with his limitations and restrictions Pt. returned to room with SBA. In room with call taylor at hand up in chair. Start Time: 13:00 Stop Time: 14:05 Total Billed Treatment Time: 65 Total Billed Treatment 1,GRP CHRISTINA MARTINEZ PHOTOGRAPHIC HAND DEVELOPER Aug 04, 2017 14:33
[2017-08-04] MEDS: HYDROcodone/APAP 10 MG/325 MG (LORTAB) TAB PO PRN (15:39)
--- NOTE | 2017-08-04 15:50 | PM & R (SOAP) Progress Note ---
Subjective Time Seen by Provider: 14:30 Subjective/Events-last exam Patient was seen in his rrom this afternoon Patient SBA for transfers Incision sites healing well Objective Exam Last Set of Vital Signs Vital Signs Date Time Temp Pulse Resp B/P (MAP) Pulse Ox O2 Delivery O2 Flow Rate FiO2 08/04/17 09:00 Room Air 08/04/17 06:00 97.6 75 18 110/68 (82) 92 Capillary Refill : Less Than 3 Seconds I&O Intake and Output 08/04/17 00:00 Intake Total 1380 ml Output Total 1600 ml Balance -220 ml Intake Oral 1380 ml Output Urine Total 1600 ml # Voids 4 # Bowel Movements 2 General: Alert, Oriented X3, Cooperative, No Acute Distress HEENT: Atraumatic, PERRLA, EOMI, Mucous Memb Moist/[place] Neck: Supple, No JVD Lungs: Clear to Auscultation Heart: Regular Rate Abdomen: Normal Bowel Sounds, Soft, No Tenderness Extremities: Other (RT BKA) Skin: Other (Sternotomy site healing) Neuro: Other (Good strength but some guarding due to Sternotomy incision site) Assessment/Plan Assessment CAD s/p Cabg times 3 DR sheyla Murphy S/P NSTEMI TRaumatic amputaion rt BKA age 14 yo AAA without rupture HTN controlled Tobaccoism Bilateral Carotid Artery D Old rt hand injury Postop constipation Plan Continue PT/OT/Pain management /Wound care Sternotomy precautions Constipation treated Team Conference 08-06-17 PAUL DODSON MD Aug 04, 2017 15:50
--- NOTE | 2017-08-04 17:05 | Occupational Ther Daily Note ---
OT Current Status-Daily Note Subjective No pain reported. Appearance Pt. up in chair. Agrees to shower. Mental Status/Objective Patient Orientation: Person, Place Functional [place] Measure 0=Not Assessed/NA 4=Minimal Assistance 1=Total Assistance 5=Supervision or Setup 2=Maximal Assistance 6=Modified [place] 3=Moderate Assistance 7=Complete [place] ADL-Treatment Functional [place] Measure 0=Not Assessed/NA 4=Minimal Assistance 1=Total Assistance 5=Supervision or Setup 2=Maximal Assistance 6=Modified [place] 3=Moderate Assistance 7=Complete IndependenceIRFPAI Quality Coding Scale 6 Independent with activity with or without an assistive device 5 Patient requires set up or clean up by helper. Patient completes activity by themselves 4 Supervision or touching assist (CGA). [place] provide cues , steadying assist 3 The helper provides less than half the effort to complete the activity 2 The helper provides more than half the effort to complete the activity 1 Dependent. The helper does all the effort to complete an activity 7 Patient refused to complete or attempt activity 9 The patient did not perform the activity before the current illness or injury 88 Not attempted due to Medical conditions or safety concerns Bathing (FIM): 4 (CGA in stance.) Shower/Bathe Self (QC): 4 Upper Body (FIM): 5 Upper Body Dressing (QC): 5 Lower Body Dressing (FIM): 3 (Min assist to don shoe and sock. CGA to pull up pants.) Lower Body Dressing (QC): 3 On/Off Footwear (QC): 2 Transfers (B, C, W/C) (FIM): 4 Shower Transfer(FIM): 4 Education OT Patient Education: Modified ADL techniques, Progress toward Goal/Update tx plan, Purpose of tx/functional activities, Reviewed precautions, Rehab process, Transfer techniques Teaching Recipient: Patient Teaching Methods: Demonstration, Discussion Response to Teaching: Verbalize Understanding, Return Demonstration OT Short Term Goals Short Term Goals Time Frame: Aug 07, 2017 Eating(FIM): 5 Grooming(FIM): 5 Bathing(FIM): 4 Upper Body Dressing(FIM): 5 Lower Body Dressing(FIM): 4 Toileting(FIM): 4 Transfers (B,C,W/C) (FIM): 6 Toilet/Commode Transfer(FIM): 4 Shower Transfer(FIM): 4 Additional Short Term Goals: 1-Demonstrate ADL Tasks, 2-Verbalize Understanding , 3-ImproveStrength/Agustín 1=Demonstrate adherence to instructed precautions during ADL tasks. 2=Patient will verbalize/demonstrate understanding of assistive devices/ modifications for ADL. 3=Patient will improve strength/tolerance for activity to enable patient to perform ADL's. OT [facility] Goals [facility] Goals Time Frame: Aug 21, 2017 Eating (FIM): 6 Eating (QC): 6 Groomin Oral Hygiene (QC): 6 Bathing(FIM): 5 Shower/Bathe Self (QC): 5 Upper Body Dressing(FIM): 6 Upper Body Dressing (QC): 6 Lower Body Dressing(FIM): 6 Lower Body Dressing (QC): 6 On/Off Footwear (QC): 6 Toileting(FIM): 6 Toileting Hygiene (QC): 6 Transfers (B,C,W/C) (FIM): 6 Toilet/Commode Transfer(FIM): 6 Toilet/Commode Transfer (QC): 6 Shower Transfer(FIM): 5 Additional Goals: 1-Demonstrate ADL Tasks, 2-Verbalize Understanding, 3- ImproveStrength/Agustín 1=Demonstrate adherence to instructed precautions during ADL tasks. 2=Patient will verbalize/demonstrate understanding of assistive devices/ modifications for ADL. 3=Patient will improve strength/tolerance for activity to enable patient to perform ADL's. OT Education/Plan Problem List/Assessment Assessment: Decreased Activ Tolerance, Decreased UE Strength, Dependent Transfers, Impaired Bed Mobility, Impaired Funct Balance, Impaired I ADL's, Impaired Self-Care Skills Discharge Recommendations Plan/Recommendations: Continue POC Therapy D/C Recommendations: Home Independently, Occupational Therapy Home Care Equpiment Recommendations-D/C: Hip Kit Treatment Plan/Plan of Care Treatment,Training & Education: Yes Patient would benefit from OT for education, treatment and training to promote independence in ADL's, mobility, safety and/or upper extremity function for ADL' s. Plan of Care: ADL Retraining, Functional Mobility, Group Exercise/Act as Ind, UE Funct Exercise/Act Treatment Duration: Aug 21, 2017 Frequency: At least 5 of 7 days/Wk (IRF) Estimated Hrs Per Day: 1.5 hours per day Agreement: Yes Rehab Potential: Good Time/GCodes Start Time: 10:00 Stop Time: 11:00 Total Time Billed (hr/min): 60 Billed Treatment Time 1, ADL x 4 BRUCE FUENTES OT Aug 04, 2017 17:05
[2017-08-04 18:00] VITALS: BP 86/55
[2017-08-04 18:28] VITALS: BP 100/70
[2017-08-04] MEDS: ATORVASTATIN 40 MG (LIPITOR) TABLET PO SCH (20:25)
[2017-08-04] MEDS: ZOLPIDEM 5 MG (AMBIEN) TAB PO SCH (20:25)
[2017-08-05 05:10] VITALS: BP 121/76
[2017-08-05] MEDS: IBUPROFEN 800 MG (MOTRIN) TAB PO SCH ×3 (06:43→18:00)
--- NOTE | 2017-08-05 08:34 | Progress Note (SOAP) ---
Subjective Time Seen by Provider: 08:30 Subjective/Events-last exam patient feeling good today.. Wounds look healed. Patient states he feels more like himself Objective Exam Vital Signs Date Time Temp Pulse Resp B/P (MAP) Pulse Ox O2 Delivery O2 Flow Rate FiO2 08/05/17 05:10 98.0 80 20 121/76 (91) 97 Room Air 08/04/17 20:20 Room Air 08/04/17 18:28 66 18 100/70 (80) 08/04/17 18:00 98.1 73 18 86/55 (65) 97 Room Air 08/04/17 09:00 Room Air I & O 08/05/17 07:00 Intake Total 1450 ml Output Total 1075 ml Balance 375 ml Capillary Refill : Less Than 3 Seconds General Appearance: No Apparent Distress, WD/WN Assessment/Plan Assessment/Plan Assess & Plan/Chief Complaint None elevated ST [place]. CABG. BKA right leg. History of tobacco usage. Previous AAA surgery. . 08/04/17. Non-ST elevated FL. CABG. BKA right leg. History of tobacco usage. Previous AAA surgery. Patient feels he is improving . 08/05/17 non-ST elevated FL. CABG. BKA right leg. Previous AAA surgery wound is looking good Clinical Quality Measures DVT/VTE Risk/Contraindication: Risk Factor Score Per Nursin RFS Level Per Nursing on Admit: 4+=Very High YURY ELIZONDO DO Aug 05, 2017 08:34
[2017-08-05 08:57] VITALS: BP 114/76
[2017-08-05] MEDS: HYDROcodone/APAP 10 MG/325 MG (LORTAB) TAB PO PRN ×2 (09:00→19:36)
[2017-08-05] MEDS: CLOPIDOGREL 75 MG (PLAVIX) TABLET PO SCH (09:00)
[2017-08-05] MEDS: meTOprolol TARTRATE 25 MG (LOPRESSOR) TABLET PO SCH ×2 (09:00→20:50)
[2017-08-05] MEDS: lisINopril 20 MG (PRINIVIL) TABLET PO SCH (09:00)
[2017-08-05] MEDS: ASPIRIN E.C. 81 MG (ECOTRIN) TAB PO SCH (09:00)
--- NOTE | 2017-08-05 12:09 | Physical Therapy Daily Note ---
PT Daily Note-Current Subjective Pt sitting in [facility] in [facility] upon arrival. Pt agrees to PT. Pain Numeric Pain Scale: 4 Location: Right, Incisional, Left Location Body Site: Thigh Pain Description: Ache Mental Status Patient Orientation: Person, Place, Situation Transfers Functional [place] Measure 0=Not Assessed/NA 4=Minimal Assistance 1=Total Assistance 5=Supervision or Setup 2=Maximal Assistance 6=Modified [place] 3=Moderate Assistance 7=Complete IndependenceIRFPAI Quality Coding Scale 6 Independent with activity with or without an assistive device 5 Patient requires set up or clean up by helper. Patient completes activity by themselves 4 Supervision or touching assist (CGA). [place] provide cues , steadying assist 3 The helper provides less than half the effort to complete the activity 2 The helper provides more than half the effort to complete the activity 1 Dependent. The helper does all the effort to complete an activity 7 Patient refused to complete or attempt activity 9 The patient did not perform the activity before the current illness or injury 88 Not attempted due to Medical conditions or safety concerns Sit to/from Stand: 5 Sit to Stand (QC): 5 Weight Bearing Left Lower Extremity: Left Full Weight Bearing Wheelchair Training Does the Pt Use a Wheelchair?: Yes Wheelchair Distance: 3=150 ft Distance: 700' Wheelchair Level of Assist: 5 Wheel 50 ft with 2 turns (QC): 5 Wheel 150 ft (QC): 5 Type of Wheelchair: Manual Exercises Seated Therapy Exercises: Sit to stand Seated Reps: 5 Treatments Pt & CHEMISTRY RESEARCH ASSISTANT discuss pt education items including ARU weekly meeting and how daily tx affect discharge as well as what pt might need at home/support he has for assistance. Pt propels [facility] to elevator as well as main floor of hospital for extended practice with distance and turns. Pt takes a couple of short rest breaks during [facility] mobility. Pt practices 5 sit to stands from [facility] with chair in front of pt for support. Pt returns to ARU and propels [facility] back to room to rest at end of tx with all needs met. Assessment Current Status: Good Progress Pt & CHEMISTRY RESEARCH ASSISTANT feel pt is improving with decrease feeling of physical exertion & pain. Pt fatigues with increased WC mobility but quick to recover. PT Short Term Goals Short Term Goals Time Frame: Aug 07, 2017 Transfers (B,C,W/C) (FIM): 6 Wheelchair (FIM): 6 Wheelchair Distance: 200 feet Wheelchair Level of Assist: 6 PT Group Home Goals Group Home Goals PT Group Home Goals Time Frame: Aug 14, 2017 Transfers (B,C,W/C) (FIM): 6 Sit to Lying (QC): 6 Lying-Sitting on Side/Bed(QC): 6 Sit to Stand (QC): 6 Rollin Roll Left to Right (QC): 6 Chair/Xib-oh-Ndhnc Xfer(QC): 6 Car Transfer (QC): 6 Does the Patient Walk: Yes Gait (FIM): 2 Distance: 50' Walk 10 feet (QC): 6 Walk 10ft-Uneven Surface(QC): 6 Walk 50ft with 2 Turns (QC): 6 Gait Level of Assist: 6 Does the Pt use WC or Scooter?: Yes Wheelchair (FIM): 6 Distance: 300 feet Wheelchair Level of Assist: 6 Wheel 50 feet with 2 turns (QC: 6 PT Plan Problem List Problem List: Activity Tolerance, Functional Strength, Gait Treatment/Plan Treatment Plan: Continue Plan of Care Treatment Plan: Bed Mobility, Education, Functional Activity Agustín, Functional Strength, Group Therapy, Gait, Safety, Therapeutic Exercise, Transfers Treatment Duration: Aug 21, 2017 Frequency: At least 5 of 7 days/Wk (IRF) Estimated Hrs Per Day: 1.5 hours per day Patient and/or Family Agrees t: Yes Safety Risks/Education Patient Education: Transfer Techniques, Correct Positioning, Safety Issues Teaching Recipient: Patient Teaching Methods: Discussion Response to Teaching: Verbalize Understanding Time/GCodes Time In: 1100 Time Out: 1200 Total Billed Treatment Time: 60 Total Billed Treatment 1, WC x2 (35m) & FA x2 (25m) BIGG WILKINS PTA Aug 05, 2017 12:09
[2017-08-05] MEDS: SENNA W/DOCUSATE (SENOKOT S) TABLET PO SCH ×2 (12:37→20:50)
--- NOTE | 2017-08-05 12:48 | Occupational Ther Daily Note ---
OT Current Status-Daily Note Subjective Pt seen in room, up in bed, agreeable to OT. No pain mentioned but some discomfort where jennifer are. Appearance Alert, cooperative. Mental Status/Objective Functional [place] Measure 0=Not Assessed/NA 4=Minimal Assistance 1=Total Assistance 5=Supervision or Setup 2=Maximal Assistance 6=Modified [place] 3=Moderate Assistance 7=Complete [place] ADL-Treatment Pt initially agreed to sponge bath but changed his mind, stating that he had a good shower yesterday. He did change clothes, seated at EOB, donning shirt with setup and shorts with setup and SBA when he stood, holding on to bed rail to pull pants up. He transferred SBA from bed to w/c, toward his L side, with SBA ( SPT). He declined grooming but did say that he was waiting for his specific razor so that he could shave, which he said he would do seated at sink. Functional [place] Measure 0=Not Assessed/NA 4=Minimal Assistance 1=Total Assistance 5=Supervision or Setup 2=Maximal Assistance 6=Modified [place] 3=Moderate Assistance 7=Complete IndependenceIRFPAI Quality Coding Scale 6 Independent with activity with or without an assistive device 5 Patient requires set up or clean up by helper. Patient completes activity by themselves 4 Supervision or touching assist (CGA). [place] provide cues , steadying assist 3 The helper provides less than half the effort to complete the activity 2 The helper provides more than half the effort to complete the activity 1 Dependent. The helper does all the effort to complete an activity 7 Patient refused to complete or attempt activity 9 The patient did not perform the activity before the current illness or injury 88 Not attempted due to Medical conditions or safety concerns Upper Body (FIM): 5 Lower Body Dressing (FIM): 5 Other Treatment Pt propelled his w/c to gym. He tended to reach back a little past midline but said that he didn't use much force and didn't feel any stretching or pain in his sternum. In the gym, he did bilat UE activities with 1# weight on each arm and not reaching with shoulders past 90 degrees flex/abd. He did arc activity with no extensions and with shortest extension, graded clothespins and nuts/ bolts. He noted that he could feel that his arms were working but he wasn't in pain. At end of tx, pt propelled himself back to his room and was left up in w/c , visiting with friend, all needs met. Education OT Patient Education: Energy conservation, Exercise program, Modified ADL techniques, Progress toward Goal/Update tx plan, Purpose of tx/functional activities Teaching Recipient: Patient Teaching Methods: Demonstration, Discussion Response to Teaching: Verbalize Understanding, Return Demonstration, Reinforcement Needed OT Short Term Goals Short Term Goals Time Frame: Aug 07, 2017 Eating(FIM): 5 Grooming(FIM): 5 Bathing(FIM): 4 Upper Body Dressing(FIM): 5 Lower Body Dressing(FIM): 4 Toileting(FIM): 4 Transfers (B,C,W/C) (FIM): 6 Toilet/Commode Transfer(FIM): 4 Shower Transfer(FIM): 4 Additional Short Term Goals: 1-Demonstrate ADL Tasks, 2-Verbalize Understanding , 3-ImproveStrength/Agustín 1=Demonstrate adherence to instructed precautions during ADL tasks. 2=Patient will verbalize/demonstrate understanding of assistive devices/ modifications for ADL. 3=Patient will improve strength/tolerance for activity to enable patient to perform ADL's. OT Half-Way Goals Half-Way Goals Time Frame: Aug 21, 2017 Eating (FIM): 6 Eating (QC): 6 Groomin Oral Hygiene (QC): 6 Bathing(FIM): 5 Shower/Bathe Self (QC): 5 Upper Body Dressing(FIM): 6 Upper Body Dressing (QC): 6 Lower Body Dressing(FIM): 6 Lower Body Dressing (QC): 6 On/Off Footwear (QC): 6 Toileting(FIM): 6 Toileting Hygiene (QC): 6 Transfers (B,C,W/C) (FIM): 6 Toilet/Commode Transfer(FIM): 6 Toilet/Commode Transfer (QC): 6 Shower Transfer(FIM): 5 Additional Goals: 1-Demonstrate ADL Tasks, 2-Verbalize Understanding, 3- ImproveStrength/Agustín 1=Demonstrate adherence to instructed precautions during ADL tasks. 2=Patient will verbalize/demonstrate understanding of assistive devices/ modifications for ADL. 3=Patient will improve strength/tolerance for activity to enable patient to perform ADL's. OT Education/Plan Discharge Recommendations Plan/Recommendations: Continue POC Treatment Plan/Plan of Care Patient would benefit from OT for education, treatment and training to promote independence in ADL's, mobility, safety and/or upper extremity function for ADL' s. Plan of Care: ADL Retraining, Functional Mobility, Group Exercise/Act as Ind, UE Funct Exercise/Act Treatment Duration: Aug 21, 2017 Frequency: At least 5 of 7 days/Wk (IRF) Estimated Hrs Per Day: 1.5 hours per day Agreement: Yes Rehab Potential: Good Time/GCodes Start Time: 09:00 Stop Time: 10:00 Total Time Billed (hr/min): 60 Billed Treatment Time visit, 20 minutes ADL, 40 minutes exercise JOANN MUSTAFA OT Aug 05, 2017 12:48
--- NOTE | 2017-08-05 14:03 | PM & R (SOAP) Progress Note ---
Subjective Time Seen by Provider: 08:05 Subjective/Events-last exam Patient was seen in his room this AM Patient SBA for transfers Objective Exam Last Set of Vital Signs Vital Signs Date Time Temp Pulse Resp B/P (MAP) Pulse Ox O2 Delivery O2 Flow Rate FiO2 08/05/17 08:57 96.9 78 20 114/76 (89) 98 Room Air Capillary Refill : Less Than 3 Seconds I&O Intake and Output 08/05/17 00:00 Intake Total 1730 ml Output Total 925 ml Balance 805 ml Intake Oral 1730 ml Output Urine Total 925 ml # Voids 2 # Bowel Movements 1 General: Alert, Oriented X3, Cooperative, No Acute Distress HEENT: Atraumatic, PERRLA, EOMI, Mucous Memb Moist/[place]: Supple, No JVD Lungs: Clear to Auscultation Heart: Regular Rate Abdomen: Normal Bowel Sounds, Soft, No Tenderness Extremities: Other (RT BKA) Skin: Other (Sternotomy site healing) Neuro: Other (Good strength but some guarding due to Sternotomy incision site) Assessment/Plan Assessment CAD s/p Cabg times 3 DR sheyla [place] S/P NSTEMI TRaumatic amputaion rt BKA age 14 yo AAA without rupture HTN controlled Tobaccoism Bilateral Carotid Artery D Old rt hand injury Postop constipation Plan Continue PT/OT/Pain management /Wound care Sternotomy precautions Constipation treated Team Conference tomorrow 08-06-17 PAUL DODSON MD Aug 05, 2017 14:03
--- NOTE | 2017-08-05 14:05 | Occupational Ther Daily Note ---
OT Current Status-Daily Note Subjective Pt seen in room, up in w/c, agreeable to OT. No pain mentioned but pt was aware of muscle use during exercises and activities. Appearance Alert, cooperative Mental Status/Objective Functional [place] Measure 0=Not Assessed/NA 4=Minimal Assistance 1=Total Assistance 5=Supervision or Setup 2=Maximal Assistance 6=Modified [place] 3=Moderate Assistance 7=Complete [place] ADL-Treatment Functional [place] Measure 0=Not Assessed/NA 4=Minimal Assistance 1=Total Assistance 5=Supervision or Setup 2=Maximal Assistance 6=Modified [place] 3=Moderate Assistance 7=Complete IndependenceIRFPAI Quality Coding Scale 6 Independent with activity with or without an assistive device 5 Patient requires set up or clean up by helper. Patient completes activity by themselves 4 Supervision or touching assist (CGA). [place] provide cues , steadying assist 3 The helper provides less than half the effort to complete the activity 2 The helper provides more than half the effort to complete the activity 1 Dependent. The helper does all the effort to complete an activity 7 Patient refused to complete or attempt activity 9 The patient did not perform the activity before the current illness or injury 88 Not attempted due to Medical conditions or safety concerns Other Treatment Pt propelled himself per w/c to gym, working at slow, steady pace. He positioned chair at table top and did 10 minutes bilat UE exercise with arm bike set at 10-15W resistance (low). He took a break at midpoint and did not become short of breath or overly fatigued. He also did 10 reps bilat UE ex at shoulders and 15 reps at elbows with 1# exercise bar, maintaining sternal precautions. Pt education on weight shirting in w/c and he also has a cushion on w/c for pressure management. Pt also did 10 reps shoulder shrugs and scapular retraction and reported that at times he has "burning" in scapular region L side, which these should help. Pt took himself back to his room. Education OT Patient Education: Exercise program, Purpose of tx/functional activities Teaching Recipient: Patient Teaching Methods: Demonstration, Discussion Response to Teaching: Return Demonstration OT Short Term Goals Short Term Goals Time Frame: Aug 07, 2017 Eating(FIM): 5 Grooming(FIM): 5 Bathing(FIM): 4 Upper Body Dressing(FIM): 5 Lower Body Dressing(FIM): 4 Toileting(FIM): 4 Transfers (B,C,W/C) (FIM): 6 Toilet/Commode Transfer(FIM): 4 Shower Transfer(FIM): 4 Additional Short Term Goals: 1-Demonstrate ADL Tasks, 2-Verbalize Understanding , 3-ImproveStrength/Agustín 1=Demonstrate adherence to instructed precautions during ADL tasks. 2=Patient will verbalize/demonstrate understanding of assistive devices/ modifications for ADL. 3=Patient will improve strength/tolerance for activity to enable patient to perform ADL's. OT Prison Goals Prison Goals Time Frame: Aug 21, 2017 Eating (FIM): 6 Eating (QC): 6 Groomin Oral Hygiene (QC): 6 Bathing(FIM): 5 Shower/Bathe Self (QC): 5 Upper Body Dressing(FIM): 6 Upper Body Dressing (QC): 6 Lower Body Dressing(FIM): 6 Lower Body Dressing (QC): 6 On/Off Footwear (QC): 6 Toileting(FIM): 6 Toileting Hygiene (QC): 6 Transfers (B,C,W/C) (FIM): 6 Toilet/Commode Transfer(FIM): 6 Toilet/Commode Transfer (QC): 6 Shower Transfer(FIM): 5 Additional Goals: 1-Demonstrate ADL Tasks, 2-Verbalize Understanding, 3- ImproveStrength/Agustín 1=Demonstrate adherence to instructed precautions during ADL tasks. 2=Patient will verbalize/demonstrate understanding of assistive devices/ modifications for ADL. 3=Patient will improve strength/tolerance for activity to enable patient to perform ADL's. OT Education/Plan Discharge Recommendations Plan/Recommendations: Continue POC Treatment Plan/Plan of Care Patient would benefit from OT for education, treatment and training to promote independence in ADL's, mobility, safety and/or upper extremity function for ADL' s. Plan of Care: ADL Retraining, Functional Mobility, Group Exercise/Act as Ind, UE Funct Exercise/Act Treatment Duration: Aug 21, 2017 Frequency: At least 5 of 7 days/Wk (IRF) Estimated Hrs Per Day: 1.5 hours per day Agreement: Yes Rehab Potential: Good Time/GCodes Start Time: 13:00 Stop Time: 13:30 Total Time Billed (hr/min): 30 Billed Treatment Time visit, 30 minutes exercise JOANN MUSTAFA OT Aug 05, 2017 14:05
--- NOTE | 2017-08-05 16:16 | Physical Therapy Daily Note ---
PT Daily Note-Current Subjective Pt sitting in WC with LLE propped up on bed upon arrival. Pt agrees to PT. Pain Numeric Pain Scale: 5-Moderate Pain Location: Right, Incisional Location Body Site: Thigh Pain Description: Ache Mental Status Patient Orientation: Person, Place, Situation Transfers Functional [place] Measure 0=Not Assessed/NA 4=Minimal Assistance 1=Total Assistance 5=Supervision or Setup 2=Maximal Assistance 6=Modified [place] 3=Moderate Assistance 7=Complete IndependenceIRFPAI Quality Coding Scale 6 Independent with activity with or without an assistive device 5 Patient requires set up or clean up by helper. Patient completes activity by themselves 4 Supervision or touching assist (CGA). [place] provide cues , steadying assist 3 The helper provides less than half the effort to complete the activity 2 The helper provides more than half the effort to complete the activity 1 Dependent. The helper does all the effort to complete an activity 7 Patient refused to complete or attempt activity 9 The patient did not perform the activity before the current illness or injury 88 Not attempted due to Medical conditions or safety concerns Weight Bearing Left Lower Extremity: Left Full Weight Bearing Exercises Supine Ex: Straight leg raise, Hip abd/add Supine Reps: 15 Treatments Pt completed a few Supine Ex before asking questions regarding discharge and ARU weekly meeting for tomorrow. Pt wanted to know how pt would know he would be discharging. Pt also wanted PT to pass on that his cousin, Laura, could possibly get a [facility] if pt's insurance wouldn't cover it. Pt reported that he would be complaint with whatever is decided about his discharge because while he wants to get home to his dominick, he also wants to go home safely. Pt resting at end of tx. with all needs met. Assessment Current Status: Good Progress Pt continues to get stronger and more independent with mobility although fatigues due to recent CABG. PT Short Term Goals Short Term Goals Time Frame: Aug 07, 2017 Transfers (B,C,W/C) (FIM): 6 Wheelchair (FIM): 6 Wheelchair Distance: 700' Wheelchair Level of Assist: 6 PT Regional Construction Manager Goals Regional Construction Manager Goals PT [facility] Goals Time Frame: Aug 14, 2017 Transfers (B,C,W/C) (FIM): 6 Sit to Lying (QC): 6 Lying-Sitting on Side/Bed(QC): 6 Sit to Stand (QC): 6 Rollin Roll Left to Right (QC): 6 Chair/Luc-fp-Ornbz Xfer(QC): 6 Car Transfer (QC): 6 Does the Patient Walk: Yes Gait (FIM): 2 Distance: 50' Walk 10 feet (QC): 6 Walk 10ft-Uneven Surface(QC): 6 Walk 50ft with 2 Turns (QC): 6 Gait Level of Assist: 6 Does the Pt use WC or Scooter?: Yes Wheelchair (FIM): 6 Distance: 300 feet Wheelchair Level of Assist: 6 Wheel 50 feet with 2 turns (QC: 6 PT Plan Problem List Problem List: Activity Tolerance, Functional Strength, Gait Treatment/Plan Treatment Plan: Continue Plan of Care Treatment Plan: Bed Mobility, Education, Functional Activity Agustín, Functional Strength, Group Therapy, Gait, Safety, Therapeutic Exercise, Transfers Treatment Duration: Aug 21, 2017 Frequency: At least 5 of 7 days/Wk (IRF) Estimated Hrs Per Day: 1.5 hours per day Patient and/or Family Agrees t: Yes Safety Risks/Education Patient Education: Transfer Techniques, Correct Positioning, Safety Issues Teaching Recipient: Patient Teaching Methods: Discussion Response to Teaching: Verbalize Understanding Time/GCodes Time In: 1500 Time Out: 1530 Total Billed Treatment Time: 30 Total Billed Treatment 1, EX (10m) & FA (20m) BIGG WILKINS PTA Aug 05, 2017 16:16
[2017-08-05 18:21] VITALS: BP 102/64
[2017-08-05] MEDS ORDERED: CYCLOBENZAPRINE 10 MG (FLEXERIL) TAB PO PRN (18:30)
[2017-08-05] MEDS: ATORVASTATIN 40 MG (LIPITOR) TABLET PO SCH (20:50)
[2017-08-05] MEDS: ZOLPIDEM 5 MG (AMBIEN) TAB PO SCH (20:50)
[2017-08-06] MEDS: IBUPROFEN 800 MG (MOTRIN) TAB PO SCH ×4 (00:42→17:37)
[2017-08-06 05:10] VITALS: BP 110/78
--- NOTE | 2017-08-06 08:17 | PM & R (SOAP) Progress Note ---
Subjective Time Seen by Provider: 08:20 Subjective/Events-last exam Patient was seen in his room this AM Patient c/o spasms left lateral rib musculature and back Requested Muscle relaxant last evening but declined Flexeril as he indicates that he and his family dont tollerate that med makes him feel strange.will try Baclofen Patient agreeable see orders. Review of Systems Musculoskeletal: back pain Objective Exam Last Set of Vital Signs Vital Signs Date Time Temp Pulse Resp B/P (MAP) Pulse Ox O2 Delivery O2 Flow Rate FiO2 08/06/17 05:10 98.2 73 18 110/78 (89) 95 Room Air Capillary Refill : Less Than 3 Seconds I&O Intake and Output 08/06/17 00:00 Intake Total 1700 ml Output Total 1675 ml Balance 25 ml Intake Oral 1700 ml Output Urine Total 1675 ml General: Alert, Oriented X3, Cooperative, No Acute Distress HEENT: Atraumatic, PERRLA, EOMI, Mucous Memb Moist/[place] Neck: Supple, No JVD Lungs: Clear to Auscultation Heart: Regular Rate Abdomen: Normal Bowel Sounds, Soft, No Tenderness Extremities: Other (RT BKA) Skin: Other (Sternotomy site healing) Neuro: Other (Good strength but some guarding due to Sternotomy incision site) Other physical findings Tenderness left lateral rib cage and mid back Assessment/Plan Assessment CAD s/p Cabg times 3 DR sheyla [place] S/P NSTEMI TRaumatic amputaion rt BKA age 14 yo AAA without rupture HTN controlled Tobaccoism Bilateral Carotid Artery D Old rt hand injury Postop constipation Muscle strain Plan Continue PT/OT/Pain management /Wound care Sternotomy precautions Constipation treated Trial of baclofen for spasms See orders Team Conference later today-See report for full functional update and POC and PAUL VELA MD Aug 06, 2017 08:17
--- NOTE | 2017-08-06 08:42 | Occupational Ther Daily Note ---
OT Current Status-Daily Note Subjective Pt seen in bed, reporting muscle spasms like "electric shock" coming from ribs on L side. Pt jerked sharply with spasms. He said that he was afraid to get up due to spasms. Appearance Alert, obviously uncomfortable Mental Status/Objective Functional [place] Measure 0=Not Assessed/NA 4=Minimal Assistance 1=Total Assistance 5=Supervision or Setup 2=Maximal Assistance 6=Modified [place] 3=Moderate Assistance 7=Complete [place] ADL-Treatment Functional [place] Measure 0=Not Assessed/NA 4=Minimal Assistance 1=Total Assistance 5=Supervision or Setup 2=Maximal Assistance 6=Modified [place] 3=Moderate Assistance 7=Complete IndependenceIRFPAI Quality Coding Scale 6 Independent with activity with or without an assistive device 5 Patient requires set up or clean up by helper. Patient completes activity by themselves 4 Supervision or touching assist (CGA). [place] provide cues , steadying assist 3 The helper provides less than half the effort to complete the activity 2 The helper provides more than half the effort to complete the activity 1 Dependent. The helper does all the effort to complete an activity 7 Patient refused to complete or attempt activity 9 The patient did not perform the activity before the current illness or injury 88 Not attempted due to Medical conditions or safety concerns Other Treatment Discussed what he thinks may have caused this ("too much wheelchair travel yesterday. I went all over the hospital on my own with my friend and also with therapy") He is reluctant to take muscle relaxers but said he would take Aleve which he did every day before surgery. Also discussed hot pad for pain relief. Pt was provided with a warm blanket around L ribs which he said felt better. Information shared with nursing for ordering hot pad. Additional OT time rescheduled for later this morning. Pt left up in bed, all needs met. Education OT Patient Education: Purpose of tx/functional activities, Other (pain management) Teaching Recipient: Patient Teaching Methods: Discussion Response to Teaching: Verbalize Understanding OT Short Term Goals Short Term Goals Time Frame: Aug 07, 2017 Eating(FIM): 5 Grooming(FIM): 5 Bathing(FIM): 4 Upper Body Dressing(FIM): 5 Lower Body Dressing(FIM): 4 Toileting(FIM): 4 Transfers (B,C,W/C) (FIM): 6 Toilet/Commode Transfer(FIM): 4 Shower Transfer(FIM): 4 Additional Short Term Goals: 1-Demonstrate ADL Tasks, 2-Verbalize Understanding , 3-ImproveStrength/Agustín 1=Demonstrate adherence to instructed precautions during ADL tasks. 2=Patient will verbalize/demonstrate understanding of assistive devices/ modifications for ADL. 3=Patient will improve strength/tolerance for activity to enable patient to perform ADL's. OT Halfway Goals [place] Goals Time Frame: Aug 21, 2017 Eating (FIM): 6 Eating (QC): 6 Groomin Oral Hygiene (QC): 6 Bathing(FIM): 5 Shower/Bathe Self (QC): 5 Upper Body Dressing(FIM): 6 Upper Body Dressing (QC): 6 Lower Body Dressing(FIM): 6 Lower Body Dressing (QC): 6 On/Off Footwear (QC): 6 Toileting(FIM): 6 Toileting Hygiene (QC): 6 Transfers (B,C,W/C) (FIM): 6 Toilet/Commode Transfer(FIM): 6 Toilet/Commode Transfer (QC): 6 Shower Transfer(FIM): 5 Additional Goals: 1-Demonstrate ADL Tasks, 2-Verbalize Understanding, 3- ImproveStrength/Agustín 1=Demonstrate adherence to instructed precautions during ADL tasks. 2=Patient will verbalize/demonstrate understanding of assistive devices/ modifications for ADL. 3=Patient will improve strength/tolerance for activity to enable patient to perform ADL's. OT Education/Plan Discharge Recommendations Plan/Recommendations: Continue POC Treatment Plan/Plan of Care Patient would benefit from OT for education, treatment and training to promote independence in ADL's, mobility, safety and/or upper extremity function for ADL' s. Plan of Care: ADL Retraining, Functional Mobility, Group Exercise/Act as Ind, UE Funct Exercise/Act Treatment Duration: Aug 21, 2017 Frequency: At least 5 of 7 days/Wk (IRF) Estimated Hrs Per Day: 1.5 hours per day Agreement: Yes Rehab Potential: Good Time/GCodes Start Time: 08:15 Stop Time: 08:31 Total Time Billed (hr/min): 16 Billed Treatment Time visit, 16 minutes functional activity JOANN MUSTAFA OT Aug 06, 2017 08:42
--- NOTE | 2017-08-06 08:50 | Progress Note (SOAP) ---
Subjective Time Seen by Provider: 08:47 Subjective/Events-last exam Patient feeling shocks on left side of ribs. Patient complaining of muscle pain. History of jennifer removed and looking good area Non-ST elevated [place] Objective Exam Vital Signs Date Time Temp Pulse Resp B/P (MAP) Pulse Ox O2 Delivery O2 Flow Rate FiO2 08/06/17 05:10 98.2 73 18 110/78 (89) 95 Room Air 08/05/17 20:20 Room Air 08/05/17 18:21 97.5 72 18 102/64 (77) 99 Room Air 08/05/17 08:57 96.9 78 20 114/76 (89) 98 Room Air I & O 08/06/17 07:00 Intake Total 1550 ml Output Total 1300 ml Balance 250 ml Capillary Refill : Less Than 3 Seconds General Appearance: No Apparent Distress, WD/WN Assessment/Plan Assessment/Plan Assess & Plan/Chief Complaint None elevated ST [place]. CABG. BKA right leg. History of tobacco usage. Previous AAA surgery. . 08/04/17. Non-ST elevated [place]. CABG. BKA right leg. History of tobacco usage. Previous AAA surgery. Patient feels he is improving . 08/05/17 non-ST elevated [place]. CABG. BKA right leg. Previous AAA surgery wound is looking good The risks and benefits of an exercise program were discussed with the patient. The benefits including improving overall health, maintaining fitness, and preventing the development of obesity, hypertension, and cardiovascular disease were discussed. Incidental benefits such as improved self-esteem and self- confidence and improved life expectancy were discussed. 08/06/17. Non-ST elevated [place]. CABG. BKA right leg. half jennifer removed looking good Clinical Quality Measures DVT/VTE Risk/Contraindication: Risk Factor Score Per Nursin RFS Level Per Nursing on Admit: 4+=Very High YURY ELIZONDO DO Aug 06, 2017 08:50
[2017-08-06] MEDS: lisINopril 20 MG (PRINIVIL) TABLET PO SCH (08:51)
[2017-08-06] MEDS: ASPIRIN E.C. 81 MG (ECOTRIN) TAB PO SCH (08:51)
[2017-08-06] MEDS: meTOprolol TARTRATE 25 MG (LOPRESSOR) TABLET PO SCH ×2 (08:51→20:50)
[2017-08-06] MEDS: CLOPIDOGREL 75 MG (PLAVIX) TABLET PO SCH (08:51)
[2017-08-06] MEDS: HYDROcodone/APAP 10 MG/325 MG (LORTAB) TAB PO PRN ×2 (08:52→20:49)
[2017-08-06] MEDS: SENNA W/DOCUSATE (SENOKOT S) TABLET PO SCH ×2 (08:53→20:52)
[2017-08-06] MEDS: BACLOFEN 10 MG (LIORESAL) TAB PO PRN ×2 (12:49→22:16)
--- NOTE | 2017-08-06 13:00 | Occupational Ther Daily Note ---
OT Current Status-Daily Note Subjective Pt seen in room, up in w/c, feeling better in ribs. Agreeable to OT. Pt would like to go home Friday and said that his apartment is handicapped accessible. Appearance Alert, cooperative Mental Status/Objective Functional [place] Measure 0=Not Assessed/NA 4=Minimal Assistance 1=Total Assistance 5=Supervision or Setup 2=Maximal Assistance 6=Modified [place] 3=Moderate Assistance 7=Complete [place] ADL-Treatment Functional [place] Measure 0=Not Assessed/NA 4=Minimal Assistance 1=Total Assistance 5=Supervision or Setup 2=Maximal Assistance 6=Modified [place] 3=Moderate Assistance 7=Complete IndependenceIRFPAI Quality Coding Scale 6 Independent with activity with or without an assistive device 5 Patient requires set up or clean up by helper. Patient completes activity by themselves 4 Supervision or touching assist (CGA). [place] provide cues , steadying assist 3 The helper provides less than half the effort to complete the activity 2 The helper provides more than half the effort to complete the activity 1 Dependent. The helper does all the effort to complete an activity 7 Patient refused to complete or attempt activity 9 The patient did not perform the activity before the current illness or injury 88 Not attempted due to Medical conditions or safety concerns Other Treatment Pt propelled w/c with L leg and R UE to gym, giving L arm "a rest". In gym, he tried to do tabletop UE activities with 1# weight on each arm but it caused too much discomfort with ribs. He was able to do them with no additional weight, just the resistance of his arms. he also did better if the items were closer to him. Worked with nut and bolts, clips, other activities to strengthen arms, increase activity tolerance and facilitate ADLs while not causing increased discomfort in his side. Pt needed to take frequent recovery periods during activities. At end of tx, he took himself back to his room, again using R UE and L LE. Pt left up in room in w/c, all needs met. Education OT Patient Education: Energy conservation, Exercise program, Purpose of tx/ functional activities Teaching Recipient: Patient Teaching Methods: Discussion Response to Teaching: Verbalize Understanding, Return Demonstration OT Short Term Goals Short Term Goals Time Frame: Aug 07, 2017 Eating(FIM): 5 Grooming(FIM): 5 Bathing(FIM): 4 Upper Body Dressing(FIM): 5 Lower Body Dressing(FIM): 4 Toileting(FIM): 4 Transfers (B,C,W/C) (FIM): 6 Toilet/Commode Transfer(FIM): 4 Shower Transfer(FIM): 4 Additional Short Term Goals: 1-Demonstrate ADL Tasks, 2-Verbalize Understanding , 3-ImproveStrength/Agustín 1=Demonstrate adherence to instructed precautions during ADL tasks. 2=Patient will verbalize/demonstrate understanding of assistive devices/ modifications for ADL. 3=Patient will improve strength/tolerance for activity to enable patient to perform ADL's. OT Layout Artist Goals Detention Goals Time Frame: Aug 21, 2017 Eating (FIM): 6 Eating (QC): 6 Groomin Oral Hygiene (QC): 6 Bathing(FIM): 5 Shower/Bathe Self (QC): 5 Upper Body Dressing(FIM): 6 Upper Body Dressing (QC): 6 Lower Body Dressing(FIM): 6 Lower Body Dressing (QC): 6 On/Off Footwear (QC): 6 Toileting(FIM): 6 Toileting Hygiene (QC): 6 Transfers (B,C,W/C) (FIM): 6 Toilet/Commode Transfer(FIM): 6 Toilet/Commode Transfer (QC): 6 Shower Transfer(FIM): 5 Additional Goals: 1-Demonstrate ADL Tasks, 2-Verbalize Understanding, 3- ImproveStrength/Agustín 1=Demonstrate adherence to instructed precautions during ADL tasks. 2=Patient will verbalize/demonstrate understanding of assistive devices/ modifications for ADL. 3=Patient will improve strength/tolerance for activity to enable patient to perform ADL's. OT Education/Plan Discharge Recommendations Plan/Recommendations: Continue POC Treatment Plan/Plan of Care Patient would benefit from OT for education, treatment and training to promote independence in ADL's, mobility, safety and/or upper extremity function for ADL' s. Plan of Care: ADL Retraining, Functional Mobility, Group Exercise/Act as Ind, UE Funct Exercise/Act Treatment Duration: Aug 21, 2017 Frequency: At least 5 of 7 days/Wk (IRF) Estimated Hrs Per Day: 1.5 hours per day Agreement: Yes Rehab Potential: Good Time/GCodes Start Time: 11:30 Stop Time: 12:15 Total Time Billed (hr/min): 45 Billed Treatment Time visit, 45 minutes exercise JOANN MUSTAFA OT Aug 06, 2017 13:00
--- NOTE | 2017-08-06 15:09 | Physical Therapy Daily Note ---
PT Daily Note-Current Subjective Pt. agreed to Rx. States he had a good day yesterday but he he probably used his arms too much while he was "wheeling all over the first floor" b/c today his chest is so sore. Pt. states he feels he will do fine at home and would like to go home Fri or Sat afternoon. Pain Numeric Pain Scale: 3 Location: Medial Location Body Site: Chest (ribs etc) Pain Description: Pressure Mental Status Patient Orientation: Person, Place, Time, Situation Transfers Functional [place] Measure 0=Not Assessed/NA 4=Minimal Assistance 1=Total Assistance 5=Supervision or Setup 2=Maximal Assistance 6=Modified [place] 3=Moderate Assistance 7=Complete IndependenceIRFPAI Quality Coding Scale 6 Independent with activity with or without an assistive device 5 Patient requires set up or clean up by helper. Patient completes activity by themselves 4 Supervision or touching assist (CGA). [place] provide cues , steadying assist 3 The helper provides less than half the effort to complete the activity 2 The helper provides more than half the effort to complete the activity 1 Dependent. The helper does all the effort to complete an activity 7 Patient refused to complete or attempt activity 9 The patient did not perform the activity before the current illness or injury 88 Not attempted due to Medical conditions or safety concerns Transfers (B, C, W/C) (FIM): 6 Scootin Rollin Supine to/from Sit: 6 Sit to/from Stand: 6 Bed to/from Chair: 6 Car Transfer (QC): 6 SPTs all MOD I to SBA with no LOB Weight Bearing Left Lower Extremity: Left Full Weight Bearing Gait Training Does the Patient Walk?: No and Walking Goal NOT indicated Wheelchair Training Does the Pt Use a Wheelchair?: Yes Wheelchair (FIM): 6 Wheelchair Distance: 3=150 ft (400) Wheelchair Level of Assist: 6 Type of Wheelchair: Manual pt. instructed to use only his foot to manage chair this date to rest and protect his chest arms and shoulders. Pt. was able to do this for several safe turns and backing as well Exercises Supine Ex: Ankle pumps, Quad Set, Rolling, Glut sets, Heel Slides, Short Arc Quads, Scooting, Straight leg raise, Hip abd/add Supine Reps: 20 Seated Therapy Exercises: Sit to stand, Long arc quads, Hip flexion Seated Reps: 15 Treatments seated hamstring stretches 4 x 20 sec to LLE. Assessment Current Status: Good Progress pt. anxious to go home PT Short Term Goals Short Term Goals Time Frame: Aug 07, 2017 Transfers (B,C,W/C) (FIM): 6 Wheelchair (FIM): 6 Wheelchair Distance: 700' Wheelchair Level of Assist: 6 PT Long-Term Goals Industrial Laborer Goals PT Industrial Laborer Goals Time Frame: Aug 14, 2017 Transfers (B,C,W/C) (FIM): 6 Sit to Lying (QC): 6 Lying-Sitting on Side/Bed(QC): 6 Sit to Stand (QC): 6 Rollin Roll Left to Right (QC): 6 Chair/Sde-rq-Eaauu Xfer(QC): 6 Car Transfer (QC): 6 Does the Patient Walk: Yes Gait (FIM): 2 Distance: 50' Walk 10 feet (QC): 6 Walk 10ft-Uneven Surface(QC): 6 Walk 50ft with 2 Turns (QC): 6 Gait Level of Assist: 6 Does the Pt use WC or Scooter?: Yes Wheelchair (FIM): 6 Distance: 300 feet Wheelchair Level of Assist: 6 Wheel 50 feet with 2 turns (QC: 6 PT Plan Treatment/Plan Treatment Plan: Continue Plan of Care Treatment Plan: Bed Mobility, Education, Functional Activity Agustín, Functional Strength, Group Therapy, Gait, Safety, Therapeutic Exercise, Transfers Treatment Duration: Aug 21, 2017 Frequency: At least 5 of 7 days/Wk (IRF) Estimated Hrs Per Day: 1.5 hours per day Patient and/or Family Agrees t: Yes Safety Risks/Education Patient Education: Transfer Techniques, Correct Positioning, W/C Management, Disease Process, Safety Issues Teaching Recipient: Patient Teaching Methods: Demonstration, Discussion Response to Teaching: Verbalize Understanding, Return Demonstration, Reinforcement Needed Time/GCodes Time In: 1000 (1100) Time Out: 1030 (1130) Total Billed Treatment Time: 60 Total Billed Treatment 1x2,EX30m,WC30m G Codes Necessary: CHRISTINA Ramachandran SYSTEM ARCHIVE ANALYST Aug 06, 2017 15:09
--- NOTE | 2017-08-06 15:17 | Therapy Group Daily Note ---
Therapy Daily Group Note Patient Education Topic Home Safety (and fall prevention) Other/Notes Pt. participated in group PT OT session this date. Pt. to from via Mod I. Pt. 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 Pt. shared ways he has made his home safer and ways he plans to work on this when he returns. Pts. were educated RE: entry way safety , phone scam awareness, bathroom safety, consistent use of assistive devices etc. All contributing their own experiences etc. Pt. indep to room after with taylor at hand. Start Time: 13:00 Stop Time: 14:20 Total Billed Treatment Time: 80 Total Billed Treatment 1,GRP CHRISTINA MARTINEZ ATM TECHNICIAN Aug 06, 2017 15:17
[2017-08-06 18:00] VITALS: BP 108/70
[2017-08-06] MEDS: ATORVASTATIN 40 MG (LIPITOR) TABLET PO SCH (20:50)
[2017-08-06] MEDS: ZOLPIDEM 5 MG (AMBIEN) TAB PO SCH (20:50)
[2017-08-06] MEDS: ALPRAZolam 0.5 MG (XANAX) TAB PO PRN (22:16)
[2017-08-07] MEDS: IBUPROFEN 800 MG (MOTRIN) TAB PO SCH ×6 (00:20→21:36)
[2017-08-07 05:54] VITALS: BP 105/70
--- NOTE | 2017-08-07 08:51 | Progress Note (SOAP) ---
Subjective Time Seen by Provider: 08:50 Subjective/Events-last exam patient states wounds healing well. Patient has pain this morning Objective Exam Vital Signs Date Time Temp Pulse Resp B/P (MAP) Pulse Ox O2 Delivery O2 Flow Rate FiO2 08/07/17 05:54 98.3 69 20 105/70 (82) 94 Room Air 08/06/17 20:40 Room Air 08/06/17 18:00 97.9 75 16 108/70 (83) 97 Room Air I & O 08/07/17 07:00 Intake Total 1550 ml Output Total 1900 ml Balance -350 ml Capillary Refill : Less Than 3 Seconds General Appearance: No Apparent Distress, WD/WN Assessment/Plan Assessment/Plan Assess & Plan/Chief Complaint None elevated ST SD. CABG. BKA right leg. History of tobacco usage. Previous AAA surgery. . 08/04/17. Non-ST elevated SD. CABG. BKA right leg. History of tobacco usage. Previous AAA surgery. Patient feels he is improving . 08/05/17 non-ST elevated SD. CABG. BKA right leg. Previous AAA surgery wound is looking good The risks and benefits of an exercise program were discussed with the patient. The benefits including improving overall health, maintaining fitness, and preventing the development of obesity, hypertension, and cardiovascular disease were discussed. Incidental benefits such as improved self-esteem and self- confidence and improved life expectancy were discussed. 08/06/17. Non-ST elevated SD. CABG. BKA right leg. half jennifer removed looking good . . 08/07/17 non-ST elevated SD. CABG. BKA L right leg. to remove the rest of the jennifer tomorrow Clinical Quality Measures DVT/VTE Risk/Contraindication: Risk Factor Score Per Nursin RFS Level Per Nursing on Admit: 4+=Very High YURY ELIZONDO DO Aug 07, 2017 08:51
[2017-08-07] MEDS: meTOprolol TARTRATE 25 MG (LOPRESSOR) TABLET PO SCH ×2 (08:54→20:39)
[2017-08-07] MEDS: lisINopril 20 MG (PRINIVIL) TABLET PO SCH (08:54)
[2017-08-07] MEDS: ASPIRIN E.C. 81 MG (ECOTRIN) TAB PO SCH (08:54)
[2017-08-07] MEDS: CLOPIDOGREL 75 MG (PLAVIX) TABLET PO SCH (08:54)
[2017-08-07] MEDS: HYDROcodone/APAP 10 MG/325 MG (LORTAB) TAB PO PRN ×3 (08:55→20:53)
--- NOTE | 2017-08-07 09:07 | PM & R (SOAP) Progress Note ---
Subjective Time Seen by Provider: 07:55 Subjective/Events-last exam Patient was seen in his room this AM Patient found baclfen helpful with spasms in back now improved Patient Modified Independent for transfers and looking forward to discharge next Friday08-12-17 to home. Objective Exam Last Set of Vital Signs Vital Signs Date Time Temp Pulse Resp B/P (MAP) Pulse Ox O2 Delivery O2 Flow Rate FiO2 08/07/17 05:54 98.3 69 20 105/70 (82) 94 Room Air Capillary Refill : Less Than 3 Seconds I&O Intake and Output 08/07/17 00:00 Intake Total 1650 ml Output Total 1850 ml Balance -200 ml Intake Oral 1650 ml Output Urine Total 1850 ml General: Alert, Oriented X3, Cooperative, No Acute Distress HEENT: Atraumatic, PERRLA, EOMI, Mucous Memb Moist/[place] Neck: Supple, No JVD Lungs: Clear to Auscultation Heart: Regular Rate Abdomen: Normal Bowel Sounds, Soft, No Tenderness Extremities: Other (RT BKA) Skin: Other (Sternotomy site healing) Neuro: Other (Good strength but some guarding due to Sternotomy incision site) Assessment/Plan Assessment CAD s/p Cabg times 3 DR sheyla [place] S/P NSTEMI TRaumatic amputaion rt BKA age 14 yo AAA without rupture HTN controlled Tobaccoism Bilateral Carotid Artery D Old rt hand injury Postop constipation Muscle strain-improved Plan Continue PT/OT/Pain management /Wound care Sternotomy precautions Constipation treated Trial of baclofen for spasms See orders Team Conference held yesterday-See report for full functional update and POC and ELOS Discharge set for 08-12-17 as per above PAUL DODSON MD Aug 07, 2017 09:06
--- NOTE | 2017-08-07 10:03 | Physical Therapy Daily Note ---
PT Daily Note-Current Subjective Pt. in bed agrees to Rx. States he is still sore in his rib cage and feels it in the back more today but overall is excited to have a DC date set and feels he has made much progress. Pain Numeric Pain Scale: 3 Location: Medial Location Body Site: Back Pain Description: Ache Comment: described as soreness Mental Status Patient Orientation: Normal For Age Transfers Functional [place] Measure 0=Not Assessed/NA 4=Minimal Assistance 1=Total Assistance 5=Supervision or Setup 2=Maximal Assistance 6=Modified [place] 3=Moderate Assistance 7=Complete IndependenceIRFPAI Quality Coding Scale 6 Independent with activity with or without an assistive device 5 Patient requires set up or clean up by helper. Patient completes activity by themselves 4 Supervision or touching assist (CGA). [place] provide cues , steadying assist 3 The helper provides less than half the effort to complete the activity 2 The helper provides more than half the effort to complete the activity 1 Dependent. The helper does all the effort to complete an activity 7 Patient refused to complete or attempt activity 9 The patient did not perform the activity before the current illness or injury 88 Not attempted due to Medical conditions or safety concerns Transfers (B, C, W/C) (FIM): 6 Scootin Rollin Supine to/from Sit: 6 Sit to/from Stand: 6 Bed to/from Chair: 6 Weight Bearing Left Lower Extremity: Left Full Weight Bearing Gait Training Does the Patient Walk?: No and Walking Goal NOT indicated Wheelchair Training Does the Pt Use a Wheelchair?: Yes Wheelchair (FIM): 6 Wheelchair Distance: 3=150 ft (200x2) Wheelchair Level of Assist: 6 Type of Wheelchair: Manual practiced using LE only again today as pt. still c/o chest and shoulder soreness. pt. mobilized w/c indep with LLE only, 200ft forward and 2300 ft backwards all slow, careful and without incident. As a result pt. c/o some hamstring soreness. Pt. instructed to elevate LLE on chair while seated in w/c and stretch left hamstrings 4 x 20 sec . Exercises Supine Ex: Ankle pumps, Quad Set, Rolling, Glut sets, Heel Slides, Short Arc Quads, Scooting, Straight leg raise, Hip abd/add Supine Reps: 15 Treatments exercise in sidelying and supine and sit. Assessment Current Status: Good Progress all TRFs Mod I. WC mobility mod I as well. pain /soreness improving but continues, pt. improved at using LE only for wc mobility PT Short Term Goals Short Term Goals Time Frame: Aug 07, 2017 Transfers (B,C,W/C) (FIM): 6 Wheelchair (FIM): 6 Wheelchair Distance: 700' Wheelchair Level of Assist: 6 PT Tankroom Worker Goals Residential Goals PT Residential Goals Time Frame: Aug 14, 2017 Transfers (B,C,W/C) (FIM): 6 Sit to Lying (QC): 6 Lying-Sitting on Side/Bed(QC): 6 Sit to Stand (QC): 6 Rollin Roll Left to Right (QC): 6 Chair/Epr-td-Uwucx Xfer(QC): 6 Car Transfer (QC): 6 Does the Patient Walk: Yes Gait (FIM): 2 Distance: 50' Walk 10 feet (QC): 6 Walk 10ft-Uneven Surface(QC): 6 Walk 50ft with 2 Turns (QC): 6 Gait Level of Assist: 6 Does the Pt use WC or Scooter?: Yes Wheelchair (FIM): 6 Distance: 300 feet Wheelchair Level of Assist: 6 Wheel 50 feet with 2 turns (QC: 6 PT Plan Treatment/Plan Treatment Plan: Continue Plan of Care Treatment Plan: Bed Mobility, Education, Functional Activity Agustín, Functional Strength, Group Therapy, Gait, Safety, Therapeutic Exercise, Transfers Treatment Duration: Aug 21, 2017 Frequency: At least 5 of 7 days/Wk (IRF) Estimated Hrs Per Day: 1.5 hours per day Patient and/or Family Agrees t: Yes Safety Risks/Education Patient Education: Transfer Techniques, Correct Positioning, W/C Management, Disease Process, Safety Issues Teaching Recipient: Patient Teaching Methods: Demonstration, Discussion Response to Teaching: Verbalize Understanding, Return Demonstration, Reinforcement Needed Time/GCodes Time In: 900 Time Out: 1000 Total Billed Treatment Time: 60 Total Billed Treatment 1,WC25m,FA15m,EX20m G Codes Necessary: CHRISTINA Ramachandran OUTSIDE SALES ADVERTISING EXECUTIVE Aug 07, 2017 10:03
--- NOTE | 2017-08-07 12:51 | Occupational Ther Daily Note ---
OT Current Status-Daily Note Subjective Pt seen in room, up in w/c, agreeable to OT. Wants to shower today and ribs feel better. No pain unless muscles are spasming. Appearance Alert, cooperative Mental Status/Objective Functional [place] Measure 0=Not Assessed/NA 4=Minimal Assistance 1=Total Assistance 5=Supervision or Setup 2=Maximal Assistance 6=Modified [place] 3=Moderate Assistance 7=Complete [place] ADL-Treatment Pt propelled self to bathroom, positioned self for transfer on/off shower chair. Returned to room and transferred without help to EOB to complete dressing. Transferred to w/c to groom. Pt left up in w/c, all needs met. ADLs took longer than usual due to unfamiliar setup. Functional [place] Measure 0=Not Assessed/NA 4=Minimal Assistance 1=Total Assistance 5=Supervision or Setup 2=Maximal Assistance 6=Modified [place] 3=Moderate Assistance 7=Complete IndependenceIRFPAI Quality Coding Scale 6 Independent with activity with or without an assistive device 5 Patient requires set up or clean up by helper. Patient completes activity by themselves 4 Supervision or touching assist (CGA). [place] provide cues , steadying assist 3 The helper provides less than half the effort to complete the activity 2 The helper provides more than half the effort to complete the activity 1 Dependent. The helper does all the effort to complete an activity 7 Patient refused to complete or attempt activity 9 The patient did not perform the activity before the current illness or injury 88 Not attempted due to Medical conditions or safety concerns Bathing (FIM): 5 (Setup. Pt washed and dried all parts, using shower bench, grab bars, hand held shower, long handled sponge. Pt encouraged to bathe seated to minimize time using UEs for standing) Upper Body (FIM): 5 (Doffed and donned clothing with setup) Lower Body Dressing (FIM): 5 (Doffed and donned clothing iwth stup, SBA when standing to pull pants up. Stood from w/c holding on to bed rail, always with one hand or other on rail or w/c arm, for steadying. Included putting on sock and shoe with laces, modified technique) Shower Transfer(FIM): 5 (SBA getting in and out of shower. Used grabbar but did not stand for pronged time during transfer. Stand pivot transfer from w/c to shower bench and back. ) Education OT Patient Education: Modified ADL techniques, Progress toward Goal/Update tx plan, Purpose of tx/functional activities, Transfer techniques, Use of adapted equipment Teaching Recipient: Patient Teaching Methods: Demonstration, Discussion Response to Teaching: Verbalize Understanding, Return Demonstration OT Short Term Goals Short Term Goals Time Frame: Aug 07, 2017 Eating(FIM): 5 Grooming(FIM): 5 Bathing(FIM): 4 Upper Body Dressing(FIM): 5 Lower Body Dressing(FIM): 4 Toileting(FIM): 4 Transfers (B,C,W/C) (FIM): 6 Toilet/Commode Transfer(FIM): 4 Shower Transfer(FIM): 4 Additional Short Term Goals: 1-Demonstrate ADL Tasks, 2-Verbalize Understanding , 3-ImproveStrength/Agustín 1=Demonstrate adherence to instructed precautions during ADL tasks. 2=Patient will verbalize/demonstrate understanding of assistive devices/ modifications for ADL. 3=Patient will improve strength/tolerance for activity to enable patient to perform ADL's. OT Senior Care Goals Senior Care Goals Time Frame: Aug 21, 2017 Eating (FIM): 6 Eating (QC): 6 Groomin Oral Hygiene (QC): 6 Bathing(FIM): 5 Shower/Bathe Self (QC): 5 Upper Body Dressing(FIM): 6 Upper Body Dressing (QC): 6 Lower Body Dressing(FIM): 6 Lower Body Dressing (QC): 6 On/Off Footwear (QC): 6 Toileting(FIM): 6 Toileting Hygiene (QC): 6 Transfers (B,C,W/C) (FIM): 6 Toilet/Commode Transfer(FIM): 6 Toilet/Commode Transfer (QC): 6 Shower Transfer(FIM): 5 Additional Goals: 1-Demonstrate ADL Tasks, 2-Verbalize Understanding, 3- ImproveStrength/Agustín 1=Demonstrate adherence to instructed precautions during ADL tasks. 2=Patient will verbalize/demonstrate understanding of assistive devices/ modifications for ADL. 3=Patient will improve strength/tolerance for activity to enable patient to perform ADL's. OT Education/Plan Discharge Recommendations Plan/Recommendations: Continue POC Treatment Plan/Plan of Care Patient would benefit from OT for education, treatment and training to promote independence in ADL's, mobility, safety and/or upper extremity function for ADL' s. Plan of Care: ADL Retraining, Functional Mobility, Group Exercise/Act as Ind, UE Funct Exercise/Act Treatment Duration: Aug 21, 2017 Frequency: At least 5 of 7 days/Wk (IRF) Estimated Hrs Per Day: 1.5 hours per day Agreement: Yes Rehab Potential: Good Time/GCodes Start Time: 10:00 Stop Time: 11:00 Total Time Billed (hr/min): 60 Billed Treatment Time visit, 60 minutes ADL JOANN MUSTAFA OT Aug 07, 2017 12:51
--- NOTE | 2017-08-07 13:33 | Physical Therapy Daily Note ---
PT Daily Note-Current Subjective Pt. agrees to Rx. Spoke about how he plans to try to change his diet to more heart healthy after DC to home. Pain Numeric Pain Scale: 3 Location: Medial Location Body Site: Back Pain Description: Ache Comment: describes as soreness Mental Status Patient Orientation: Normal For Age Transfers Functional [place] Measure 0=Not Assessed/NA 4=Minimal Assistance 1=Total Assistance 5=Supervision or Setup 2=Maximal Assistance 6=Modified [place] 3=Moderate Assistance 7=Complete IndependenceIRFPAI Quality Coding Scale 6 Independent with activity with or without an assistive device 5 Patient requires set up or clean up by helper. Patient completes activity by themselves 4 Supervision or touching assist (CGA). [place] provide cues , steadying assist 3 The helper provides less than half the effort to complete the activity 2 The helper provides more than half the effort to complete the activity 1 Dependent. The helper does all the effort to complete an activity 7 Patient refused to complete or attempt activity 9 The patient did not perform the activity before the current illness or injury 88 Not attempted due to Medical conditions or safety concerns SPTs w/c to bed and back SBA Weight Bearing Left Lower Extremity: Left Full Weight Bearing Wheelchair Training Type of Wheelchair: Manual fig 8s and retro mobility using LEs only and UEs and LE combined Exercises Seated Therapy Exercises: Ankle pumps, Sit to stand, Long arc quads, Hip flexion Seated Reps: 15 Treatments hamstring stretches 4 x 20 LLE Assessment Current Status: Good Progress PT Short Term Goals Short Term Goals Time Frame: Aug 07, 2017 Transfers (B,C,W/C) (FIM): 6 Wheelchair (FIM): 6 Wheelchair Distance: 700' Wheelchair Level of Assist: 6 PT Social Worker Palliative Care Goals Social Worker Palliative Care Goals PT Senior Care Goals Time Frame: Aug 14, 2017 Transfers (B,C,W/C) (FIM): 6 Sit to Lying (QC): 6 Lying-Sitting on Side/Bed(QC): 6 Sit to Stand (QC): 6 Rollin Roll Left to Right (QC): 6 Chair/Tlp-gl-Gpboj Xfer(QC): 6 Car Transfer (QC): 6 Does the Patient Walk: Yes Gait (FIM): 2 Distance: 50' Walk 10 feet (QC): 6 Walk 10ft-Uneven Surface(QC): 6 Walk 50ft with 2 Turns (QC): 6 Gait Level of Assist: 6 Does the Pt use WC or Scooter?: Yes Wheelchair (FIM): 6 Distance: 300 feet Wheelchair Level of Assist: 6 Wheel 50 feet with 2 turns (QC: 6 PT Plan Treatment/Plan Treatment Plan: Continue Plan of Care Treatment Plan: Bed Mobility, Education, Functional Activity Agustín, Functional Strength, Group Therapy, Gait, Safety, Therapeutic Exercise, Transfers Treatment Duration: Aug 21, 2017 Frequency: At least 5 of 7 days/Wk (IRF) Estimated Hrs Per Day: 1.5 hours per day Patient and/or Family Agrees t: Yes Safety Risks/Education Patient Education: Transfer Techniques, Correct Positioning, W/C Management, Disease Process, Safety Issues Teaching Recipient: Patient Teaching Methods: Demonstration, Discussion Response to Teaching: Verbalize Understanding, Return Demonstration, Reinforcement Needed Time/GCodes Time In: 1300 Time Out: 1330 Total Billed Treatment Time: 30 Total Billed Treatment 1,WC20m,EX10m G Codes Necessary: CHRISTINA Ramachandran CARCASS TRIMMER Aug 07, 2017 13:33
[2017-08-07] MEDS: SENNA W/DOCUSATE (SENOKOT S) TABLET PO SCH ×2 (13:49→19:30)
--- NOTE | 2017-08-07 15:15 | Occupational Ther Daily Note ---
OT Current Status-Daily Note Subjective Pt seen in room, up in w/c, agreeable to OT. Pt reported chest pain, "like I need to burp" and nursing notified. Also provided with carbonated beverage. He burped and said he felt some better. Appearance Alert, cooperative Mental Status/Objective Functional Issue Measure 0=Not Assessed/NA 4=Minimal Assistance 1=Total Assistance 5=Supervision or Setup 2=Maximal Assistance 6=Modified Issue 3=Moderate Assistance 7=Complete Issue ADL-Treatment Functional Issue Measure 0=Not Assessed/NA 4=Minimal Assistance 1=Total Assistance 5=Supervision or Setup 2=Maximal Assistance 6=Modified Issue 3=Moderate Assistance 7=Complete IndependenceIRFPAI Quality Coding Scale 6 Independent with activity with or without an assistive device 5 Patient requires set up or clean up by helper. Patient completes activity by themselves 4 Supervision or touching assist (CGA). [place] provide cues , steadying assist 3 The helper provides less than half the effort to complete the activity 2 The helper provides more than half the effort to complete the activity 1 Dependent. The helper does all the effort to complete an activity 7 Patient refused to complete or attempt activity 9 The patient did not perform the activity before the current illness or injury 88 Not attempted due to Medical conditions or safety concerns Other Treatment Pr propelled w/c to gym, using UEs and L LE. he did 3 .5 minutes bilat UE ex with arm bike (with a couple recovery periods) and reported increased muscle spasms in ribs. Activity discontinued. Pt provided with red theraputty ( moderate resistance, with beads, for strengthening L UE for ADLs. Pt was able to find beads in putty and do several different squeezes with L hand. Unable to do it with R due to prior injury. He reported that using putty did not increase chest pain. Pt took himself back to his room, all needs met. Education OT Patient Education: Exercise program, Purpose of tx/functional activities Teaching Recipient: Patient Teaching Methods: Discussion Response to Teaching: Verbalize Understanding OT Short Term Goals Short Term Goals Time Frame: Aug 07, 2017 Eating(FIM): 5 Grooming(FIM): 5 Bathing(FIM): 4 Upper Body Dressing(FIM): 5 Lower Body Dressing(FIM): 4 Toileting(FIM): 4 Transfers (B,C,W/C) (FIM): 6 Toilet/Commode Transfer(FIM): 4 Shower Transfer(FIM): 4 Additional Short Term Goals: 1-Demonstrate ADL Tasks, 2-Verbalize Understanding , 3-ImproveStrength/Agustín 1=Demonstrate adherence to instructed precautions during ADL tasks. 2=Patient will verbalize/demonstrate understanding of assistive devices/ modifications for ADL. 3=Patient will improve strength/tolerance for activity to enable patient to perform ADL's. OT Long-Term Goals Safety Instruction Police Officer Goals Time Frame: Aug 21, 2017 Eating (FIM): 6 Eating (QC): 6 Groomin Oral Hygiene (QC): 6 Bathing(FIM): 5 Shower/Bathe Self (QC): 5 Upper Body Dressing(FIM): 6 Upper Body Dressing (QC): 6 Lower Body Dressing(FIM): 6 Lower Body Dressing (QC): 6 On/Off Footwear (QC): 6 Toileting(FIM): 6 Toileting Hygiene (QC): 6 Transfers (B,C,W/C) (FIM): 6 Toilet/Commode Transfer(FIM): 6 Toilet/Commode Transfer (QC): 6 Shower Transfer(FIM): 5 Additional Goals: 1-Demonstrate ADL Tasks, 2-Verbalize Understanding, 3- ImproveStrength/Agustín 1=Demonstrate adherence to instructed precautions during ADL tasks. 2=Patient will verbalize/demonstrate understanding of assistive devices/ modifications for ADL. 3=Patient will improve strength/tolerance for activity to enable patient to perform ADL's. OT Education/Plan Discharge Recommendations Plan/Recommendations: Continue POC Treatment Plan/Plan of Care Patient would benefit from OT for education, treatment and training to promote independence in ADL's, mobility, safety and/or upper extremity function for ADL' s. Plan of Care: ADL Retraining, Functional Mobility, Group Exercise/Act as Ind, UE Funct Exercise/Act Treatment Duration: Aug 21, 2017 Frequency: At least 5 of 7 days/Wk (IRF) Estimated Hrs Per Day: 1.5 hours per day Agreement: Yes Rehab Potential: Good Time/GCodes Start Time: 13:30 Stop Time: 14:00 Total Time Billed (hr/min): 30 Billed Treatment Time visit, 30 minutes exercise JOANN MUSTAFA OT Aug 07, 2017 15:15
[2017-08-07] MEDS: FAMOTIDINE 20 MG (PEPCID) TABLET PO PRN (17:21)
[2017-08-07 17:29] VITALS: BP 101/59
[2017-08-07] MEDS: ZOLPIDEM 5 MG (AMBIEN) TAB PO SCH (20:39)
[2017-08-07] MEDS: ATORVASTATIN 40 MG (LIPITOR) TABLET PO SCH (20:39)
[2017-08-08 05:03] VITALS: BP 120/76
--- NOTE | 2017-08-08 08:26 | Progress Note (SOAP) ---
Subjective Time Seen by Provider: 08:20 Subjective/Events-last exam patient wheelchair this morning. Patient feeling better. Patient feels is getting stronger Objective Exam Vital Signs Date Time Temp Pulse Resp B/P (MAP) Pulse Ox O2 Delivery O2 Flow Rate FiO2 08/08/17 05:03 97.8 76 18 120/76 (91) 95 Room Air 08/07/17 20:45 Room Air 08/07/17 17:29 97.8 70 20 101/59 (73) 96 Room Air 08/07/17 08:42 Room Air I & O 08/08/17 07:00 Intake Total 1430 ml Output Total 1950 ml Balance -520 ml Capillary Refill : Less Than 3 Seconds General Appearance: No Apparent Distress, WD/WN Assessment/Plan Assessment/Plan Assess & Plan/Chief Complaint None elevated ST AL. CABG. BKA right leg. History of tobacco usage. Previous AAA surgery. . 08/04/17. Non-ST elevated AL. CABG. BKA right leg. History of tobacco usage. Previous AAA surgery. Patient feels he is improving . 08/05/17 non-ST elevated AL. CABG. BKA right leg. Previous AAA surgery wound is looking good The risks and benefits of an exercise program were discussed with the patient. The benefits including improving overall health, maintaining fitness, and preventing the development of obesity, hypertension, and cardiovascular disease were discussed. Incidental benefits such as improved self-esteem and self- confidence and improved life expectancy were discussed. 08/06/17. Non-ST elevated AL. CABG. BKA right leg. half jennifer removed looking good . . 08/07/17 non-ST elevated AL. CABG. BKA L right leg. to remove the rest of the jennifer tomorrow. . 08/08/17. Non-ST elevated AL. CABG. BKA leg. patient getting stronger Clinical Quality Measures DVT/VTE Risk/Contraindication: Risk Factor Score Per Nursin RFS Level Per Nursing on Admit: 4+=Very High YURY ELIZONDO DO Aug 08, 2017 08:26
[2017-08-08] MEDS: SENNA W/DOCUSATE (SENOKOT S) TABLET PO SCH ×2 (08:30→19:35)
[2017-08-08] MEDS: meTOprolol TARTRATE 25 MG (LOPRESSOR) TABLET PO SCH ×2 (08:30→21:41)
[2017-08-08] MEDS: CLOPIDOGREL 75 MG (PLAVIX) TABLET PO SCH (08:30)
[2017-08-08] MEDS: lisINopril 20 MG (PRINIVIL) TABLET PO SCH (08:30)
[2017-08-08] MEDS: ASPIRIN E.C. 81 MG (ECOTRIN) TAB PO SCH (08:30)
[2017-08-08] MEDS: HYDROcodone/APAP 10 MG/325 MG (LORTAB) TAB PO PRN ×3 (08:31→21:41)
--- NOTE | 2017-08-08 09:06 | PM & R (SOAP) Progress Note ---
Subjective Time Seen by Provider: 08:10 Subjective/Events-last exam Patient was seen in his room this AM Pain and spasms improved..Patient SBA for Stand pivot transfers Objective Exam Last Set of Vital Signs Vital Signs Date Time Temp Pulse Resp B/P (MAP) Pulse Ox O2 Delivery O2 Flow Rate FiO2 08/08/17 05:03 97.8 76 18 120/76 (91) 95 Room Air Capillary Refill : Less Than 3 Seconds I&O Intake and Output 08/08/17 00:00 Intake Total 1280 ml Output Total 1650 ml Balance -370 ml Intake Oral 1280 ml Output Urine Total 1650 ml General: Alert, Oriented X3, Cooperative, No Acute Distress HEENT: Atraumatic, PERRLA, EOMI, Mucous Memb Moist/[place] Neck: Supple, No JVD Lungs: Clear to Auscultation Heart: Regular Rate Abdomen: Normal Bowel Sounds, Soft, No Tenderness Extremities: Other (RT BKA) Skin: Other (Sternotomy site healing) Neuro: Other (Good strength but some guarding due to Sternotomy incision site) Assessment/Plan Assessment CAD s/p Cabg times 3 DR sheyla Hearnplin S/P NSTEMI TRaumatic amputaion rt BKA age 14 yo AAA without rupture HTN controlled Tobaccoism Bilateral Carotid Artery D Old rt hand injury Postop constipation Muscle strain-improved Plan Continue PT/OT/Pain management /Wound care Sternotomy precautions Constipation treated Trial of baclofen for spasms-done Team Conference held 08-06-17-See report for full functional update and POC and ELOS Discharge remains set for Friday08-12-17 as per above to home in PAUL ESCAMILLA MD Aug 08, 2017 09:06
--- NOTE | 2017-08-08 10:35 | Physical Therapy Daily Note ---
PT Daily Note-Current Subjective Pt sitting in [facility] in [facility] upon arrival. Pt agrees to PT. Pain Numeric Pain Scale: 6 Location: Incisional Location Body Site: Chest Pain Description: Ache Mental Status Patient Orientation: Person, Place, Time, Situation Transfers Functional [place] Measure 0=Not Assessed/NA 4=Minimal Assistance 1=Total Assistance 5=Supervision or Setup 2=Maximal Assistance 6=Modified [place] 3=Moderate Assistance 7=Complete IndependenceIRFPAI Quality Coding Scale 6 Independent with activity with or without an assistive device 5 Patient requires set up or clean up by helper. Patient completes activity by themselves 4 Supervision or touching assist (CGA). [place] provide cues , steadying assist 3 The helper provides less than half the effort to complete the activity 2 The helper provides more than half the effort to complete the activity 1 Dependent. The helper does all the effort to complete an activity 7 Patient refused to complete or attempt activity 9 The patient did not perform the activity before the current illness or injury 88 Not attempted due to Medical conditions or safety concerns Scootin Rollin Roll Left to Right (QC): 6 Supine to/from Sit: 6 Sit to/from Stand: 6 Sit to Lying (QC): 6 Sit to Stand (QC): 6 Weight Bearing Left Lower Extremity: Left Full Weight Bearing Exercises Supine Ex: Ankle pumps, Quad Set, Heel Slides, Straight leg raise, Hip abd/add Treatments Pt transfers from [facility] to EOB to Supine in bed at [facility] to complete Supine Ex in bed. Pt notices some drainage from R upper thigh incision. Nurse removes jennifer and dresses the wound as needed. Pt completes Supine Ex in bed. Pt also asks for CALIBRATION TESTER's assistance with L hamstring stretching due to tightness. Pt transfers back to [facility] from bed at [facility] tin preparation for OT tx. PT has all needs met at end of tx. Assessment Current Status: Good Progress Pt reports less discomfort across chest during tx. Pt is improving with both strength and endurance. PT Short Term Goals Short Term Goals Time Frame: Aug 07, 2017 Transfers (B,C,W/C) (FIM): 6 Wheelchair (FIM): 6 Wheelchair Distance: 700' Wheelchair Level of Assist: [address] Test Examiner Goals Longterm Goals PT Longterm Goals Time Frame: Aug 14, 2017 Transfers (B,C,W/C) (FIM): 6 Sit to Lying (QC): 6 Lying-Sitting on Side/Bed(QC): 6 Sit to Stand (QC): 6 Rollin Roll Left to Right (QC): 6 Chair/Lxd-lv-Rtkma Xfer(QC): 6 Car Transfer (QC): 6 Does the Patient Walk: Yes Gait (FIM): 2 Distance: 50' Walk 10 feet (QC): 6 Walk 10ft-Uneven Surface(QC): 6 Walk 50ft with 2 Turns (QC): 6 Gait Level of Assist: 6 Does the Pt use WC or Scooter?: Yes Wheelchair (FIM): 6 Distance: 300 feet Wheelchair Level of Assist: 6 Wheel 50 feet with 2 turns (QC: 6 PT Plan Problem List Problem List: Activity Tolerance, Gait Treatment/Plan Treatment Plan: Continue Plan of Care Treatment Plan: Bed Mobility, Education, Functional Activity Agustín, Functional Strength, Group Therapy, Gait, Safety, Therapeutic Exercise, Transfers Treatment Duration: Aug 21, 2017 Frequency: At least 5 of 7 days/Wk (IRF) Estimated Hrs Per Day: 1.5 hours per day Patient and/or Family Agrees t: Yes Safety Risks/Education Patient Education: Correct Positioning, Safety Issues Teaching Recipient: Patient Response to Teaching: Verbalize Understanding Time/GCodes Time In: 930 Time Out: 1030 Total Billed Treatment 1, EX x2 (30m) & FA x2 (30m) BIGG WILKINS CALIBRATION TESTER Aug 08, 2017 10:35
[2017-08-08] MEDS: IBUPROFEN 800 MG (MOTRIN) TAB PO SCH ×3 (11:15→19:35)
--- NOTE | 2017-08-08 15:20 | Occupational Ther Daily Note ---
OT Current Status-Daily Note Subjective Pt seen in room, up in w/c, agreeable to OT. Pt reported he felt much better and hasn't had muscle spasms to day. Appearance Alert, cooperative Mental Status/Objective Functional [place] Measure 0=Not Assessed/NA 4=Minimal Assistance 1=Total Assistance 5=Supervision or Setup 2=Maximal Assistance 6=Modified [place] 3=Moderate Assistance 7=Complete [place] ADL-Treatment Functional [place] Measure 0=Not Assessed/NA 4=Minimal Assistance 1=Total Assistance 5=Supervision or Setup 2=Maximal Assistance 6=Modified [place] 3=Moderate Assistance 7=Complete IndependenceIRFPAI Quality Coding Scale 6 Independent with activity with or without an assistive device 5 Patient requires set up or clean up by helper. Patient completes activity by themselves 4 Supervision or touching assist (CGA). [place] provide cues , steadying assist 3 The helper provides less than half the effort to complete the activity 2 The helper provides more than half the effort to complete the activity 1 Dependent. The helper does all the effort to complete an activity 7 Patient refused to complete or attempt activity 9 The patient did not perform the activity before the current illness or injury 88 Not attempted due to Medical conditions or safety concerns Other Treatment Pt propelled w/c to gym, alternating UEs and using L LE. Once in gym, he did 12 minutes bilat UE ex with arm bike, set at 15W resistance, with several brief recovery breaks. he also did arc activity, nuts and bolts and table top car activity, all without additional weights (which seemed to increase muscle spasms yesterday). These are to strengthen arms to help with ADLs and to increase overall activity tolerance for basic ADLs. He tolerated more UE movement today without spasms. Pt took himself back to room. Education OT Patient Education: Exercise program, Progress toward Goal/Update tx plan, Purpose of tx/functional activities Teaching Recipient: Patient Teaching Methods: Discussion Response to Teaching: Verbalize Understanding OT Short Term Goals Short Term Goals Time Frame: Aug 07, 2017 Eating(FIM): 5 Grooming(FIM): 5 Bathing(FIM): 4 Upper Body Dressing(FIM): 5 Lower Body Dressing(FIM): 4 Toileting(FIM): 4 Transfers (B,C,W/C) (FIM): 6 Toilet/Commode Transfer(FIM): 4 Shower Transfer(FIM): 4 Additional Short Term Goals: 1-Demonstrate ADL Tasks, 2-Verbalize Understanding , 3-ImproveStrength/Agustín 1=Demonstrate adherence to instructed precautions during ADL tasks. 2=Patient will verbalize/demonstrate understanding of assistive devices/ modifications for ADL. 3=Patient will improve strength/tolerance for activity to enable patient to perform ADL's. OT Senior Oracle Adf Developer Goals Care Home Goals Time Frame: Aug 21, 2017 Eating (FIM): 6 Eating (QC): 6 Groomin Oral Hygiene (QC): 6 Bathing(FIM): 5 Shower/Bathe Self (QC): 5 Upper Body Dressing(FIM): 6 Upper Body Dressing (QC): 6 Lower Body Dressing(FIM): 6 Lower Body Dressing (QC): 6 On/Off Footwear (QC): 6 Toileting(FIM): 6 Toileting Hygiene (QC): 6 Transfers (B,C,W/C) (FIM): 6 Toilet/Commode Transfer(FIM): 6 Toilet/Commode Transfer (QC): 6 Shower Transfer(FIM): 5 Additional Goals: 1-Demonstrate ADL Tasks, 2-Verbalize Understanding, 3- ImproveStrength/Agustín 1=Demonstrate adherence to instructed precautions during ADL tasks. 2=Patient will verbalize/demonstrate understanding of assistive devices/ modifications for ADL. 3=Patient will improve strength/tolerance for activity to enable patient to perform ADL's. OT Education/Plan Discharge Recommendations Plan/Recommendations: Continue POC Treatment Plan/Plan of Care Patient would benefit from OT for education, treatment and training to promote independence in ADL's, mobility, safety and/or upper extremity function for ADL' s. Plan of Care: ADL Retraining, Functional Mobility, Group Exercise/Act as Ind, UE Funct Exercise/Act Treatment Duration: Aug 21, 2017 Frequency: At least 5 of 7 days/Wk (IRF) Estimated Hrs Per Day: 1.5 hours per day Agreement: Yes Rehab Potential: Good Time/GCodes Start Time: 10:30 Stop Time: 11:35 Total Time Billed (hr/min): 65 Billed Treatment Time visit, 65 minutes exercise JOANN MUSTAFA OT Aug 08, 2017 15:20
--- NOTE | 2017-08-08 15:25 | Occupational Ther Daily Note ---
OT Current Status-Daily Note Subjective Pt seen in room, up in w/c, agreeable to OT. No pain mentioned. Appearance Alert, cooperative Mental Status/Objective Functional [place] Measure 0=Not Assessed/NA 4=Minimal Assistance 1=Total Assistance 5=Supervision or Setup 2=Maximal Assistance 6=Modified [place] 3=Moderate Assistance 7=Complete [place] ADL-Treatment Functional [place] Measure 0=Not Assessed/NA 4=Minimal Assistance 1=Total Assistance 5=Supervision or Setup 2=Maximal Assistance 6=Modified [place] 3=Moderate Assistance 7=Complete IndependenceIRFPAI Quality Coding Scale 6 Independent with activity with or without an assistive device 5 Patient requires set up or clean up by helper. Patient completes activity by themselves 4 Supervision or touching assist (CGA). [place] provide cues , steadying assist 3 The helper provides less than half the effort to complete the activity 2 The helper provides more than half the effort to complete the activity 1 Dependent. The helper does all the effort to complete an activity 7 Patient refused to complete or attempt activity 9 The patient did not perform the activity before the current illness or injury 88 Not attempted due to Medical conditions or safety concerns Other Treatment Pt transported himself to gym per w/c, using arms and L LE. He did 10 reps at shoulders, 15 reps at elbows and distal, arm exercises using 1# exercise bar. He also did 10 reps at shoulders, 15 reps elbows and distal with AROM bilat UE ex, working on shoulders, elbows, forearms, and wrists, using 1# weight. These are to strengthen arms to help with ADLs and increase activity tolerance. Pt occasionally mentioned a twinge or a little discomfort and modified activity if needed. He maintained sternal precautions throughout. Pt took himself back to his room, all needs met. Education OT Patient Education: Exercise program, Progress toward Goal/Update tx plan, Purpose of tx/functional activities Teaching Recipient: Patient Teaching Methods: Discussion Response to Teaching: Verbalize Understanding, Return Demonstration OT Short Term Goals Short Term Goals Time Frame: Aug 07, 2017 Eating(FIM): 5 Grooming(FIM): 5 Bathing(FIM): 4 Upper Body Dressing(FIM): 5 Lower Body Dressing(FIM): 4 Toileting(FIM): 4 Transfers (B,C,W/C) (FIM): 6 Toilet/Commode Transfer(FIM): 4 Shower Transfer(FIM): 4 Additional Short Term Goals: 1-Demonstrate ADL Tasks, 2-Verbalize Understanding , 3-ImproveStrength/Agustín 1=Demonstrate adherence to instructed precautions during ADL tasks. 2=Patient will verbalize/demonstrate understanding of assistive devices/ modifications for ADL. 3=Patient will improve strength/tolerance for activity to enable patient to perform ADL's. OT Prison Goals Prison Goals Time Frame: Aug 21, 2017 Eating (FIM): 6 Eating (QC): 6 Groomin Oral Hygiene (QC): 6 Bathing(FIM): 5 Shower/Bathe Self (QC): 5 Upper Body Dressing(FIM): 6 Upper Body Dressing (QC): 6 Lower Body Dressing(FIM): 6 Lower Body Dressing (QC): 6 On/Off Footwear (QC): 6 Toileting(FIM): 6 Toileting Hygiene (QC): 6 Transfers (B,C,W/C) (FIM): 6 Toilet/Commode Transfer(FIM): 6 Toilet/Commode Transfer (QC): 6 Shower Transfer(FIM): 5 Additional Goals: 1-Demonstrate ADL Tasks, 2-Verbalize Understanding, 3- ImproveStrength/Agustín 1=Demonstrate adherence to instructed precautions during ADL tasks. 2=Patient will verbalize/demonstrate understanding of assistive devices/ modifications for ADL. 3=Patient will improve strength/tolerance for activity to enable patient to perform ADL's. OT Education/Plan Discharge Recommendations Plan/Recommendations: Continue POC Treatment Plan/Plan of Care Patient would benefit from OT for education, treatment and training to promote independence in ADL's, mobility, safety and/or upper extremity function for ADL' s. Plan of Care: ADL Retraining, Functional Mobility, Group Exercise/Act as Ind, UE Funct Exercise/Act Treatment Duration: Aug 21, 2017 Frequency: At least 5 of 7 days/Wk (IRF) Estimated Hrs Per Day: 1.5 hours per day Agreement: Yes Rehab Potential: Good Time/GCodes Start Time: 13:30 Stop Time: 14:00 Total Time Billed (hr/min): 30 Billed Treatment Time visit, 30 minutes exercise JOANN MUSTAFA OT Aug 08, 2017 15:25
--- NOTE | 2017-08-08 15:56 | Physical Therapy Daily Note ---
PT Daily Note-Current Subjective Pt sitting in [facility] in room upon arrival. Pt agrees to PT. Pain Numeric Pain Scale: 4 Location: Left Location Body Site: Thigh Pain Description: Tightness Mental Status Patient Orientation: Person, Place, Time, Situation Transfers Functional [place] Measure 0=Not Assessed/NA 4=Minimal Assistance 1=Total Assistance 5=Supervision or Setup 2=Maximal Assistance 6=Modified [place] 3=Moderate Assistance 7=Complete IndependenceIRFPAI Quality Coding Scale 6 Independent with activity with or without an assistive device 5 Patient requires set up or clean up by helper. Patient completes activity by themselves 4 Supervision or touching assist (CGA). [place] provide cues , steadying assist 3 The helper provides less than half the effort to complete the activity 2 The helper provides more than half the effort to complete the activity 1 Dependent. The helper does all the effort to complete an activity 7 Patient refused to complete or attempt activity 9 The patient did not perform the activity before the current illness or injury 88 Not attempted due to Medical conditions or safety concerns Weight Bearing Left Lower Extremity: Left Full Weight Bearing Wheelchair Training Does the Pt Use a Wheelchair?: Yes Wheelchair Distance: 3=150 ft Distance: 300' Wheelchair Level of Assist: 5 Wheel 50 ft with 2 turns (QC): 5 Type of Wheelchair: Manual Pt completes forward, backward & figure eight to focus on turns as well as propelling WCH with both arms and legs and just legs when arms fatigue. Treatments Pt completes forward, backward & figure eight in [facility] to focus on turns as well as propelling [facility] with both arms and legs and just legs when arms fatigue. Pt also stretched L hamstring during break from WCH mobility due to tightness. Pt returned to room at end of tx with all needs met. Assessment Current Status: Good Progress Pt continues to make progress toward independence with transfers and WCH mobility. Pt is fatiguing less quickly and reports less pain during tx. PT Short Term Goals Short Term Goals Time Frame: Aug 07, 2017 Transfers (B,C,W/C) (FIM): 6 Wheelchair (FIM): 6 Wheelchair Distance: 700' Wheelchair Level of Assist: 6 PT Fdc Goals Fdc Goals PT Fdc Goals Time Frame: Aug 14, 2017 Transfers (B,C,W/C) (FIM): 6 Sit to Lying (QC): 6 Lying-Sitting on Side/Bed(QC): 6 Sit to Stand (QC): 6 Rollin Roll Left to Right (QC): 6 Chair/Sic-fg-Gdmsh Xfer(QC): 6 Car Transfer (QC): 6 Does the Patient Walk: Yes Gait (FIM): 2 Distance: 50' Walk 10 feet (QC): 6 Walk 10ft-Uneven Surface(QC): 6 Walk 50ft with 2 Turns (QC): 6 Gait Level of Assist: 6 Does the Pt use WC or Scooter?: Yes Wheelchair (FIM): 6 Distance: 300 feet Wheelchair Level of Assist: 6 Wheel 50 feet with 2 turns (QC: 6 PT Plan Problem List Problem List: Activity Tolerance, Functional Strength, Gait Treatment/Plan Treatment Plan: Continue Plan of Care Treatment Plan: Bed Mobility, Education, Functional Activity Agustín, Functional Strength, Group Therapy, Gait, Safety, Therapeutic Exercise, Transfers Treatment Duration: Aug 21, 2017 Frequency: At least 5 of 7 days/Wk (IRF) Estimated Hrs Per Day: 1.5 hours per day Patient and/or Family Agrees t: Yes Safety Risks/Education Patient Education: Correct Positioning, W/C Management, Safety Issues Teaching Recipient: Patient Teaching Methods: Discussion Response to Teaching: Verbalize Understanding Time/GCodes Time In: 1400 Time Out: 1430 Total Billed Treatment 1, WCMireya (20m) & FA (10m) BIGG WILKINS QUALITY SYSTEM MANAGER Aug 08, 2017 15:56
[2017-08-08 18:53] VITALS: BP 113/73
[2017-08-08] MEDS: BACLOFEN 10 MG (LIORESAL) TAB PO PRN (20:23)
[2017-08-08] MEDS: ATORVASTATIN 40 MG (LIPITOR) TABLET PO SCH (21:40)
[2017-08-08] MEDS: FAMOTIDINE 20 MG (PEPCID) TABLET PO PRN (21:41)
[2017-08-08] MEDS: ZOLPIDEM 5 MG (AMBIEN) TAB PO SCH (21:41)
[2017-08-09 05:17] VITALS: BP 114/73
[2017-08-09] MEDS: SENNA W/DOCUSATE (SENOKOT S) TABLET PO SCH ×2 (09:23→21:02)
[2017-08-09] MEDS: CLOPIDOGREL 75 MG (PLAVIX) TABLET PO SCH (09:23)
[2017-08-09] MEDS: meTOprolol TARTRATE 25 MG (LOPRESSOR) TABLET PO SCH ×2 (09:23→20:57)
[2017-08-09] MEDS: lisINopril 20 MG (PRINIVIL) TABLET PO SCH (09:23)
[2017-08-09] MEDS: ASPIRIN E.C. 81 MG (ECOTRIN) TAB PO SCH (09:23)
[2017-08-09] MEDS: HYDROcodone/APAP 10 MG/325 MG (LORTAB) TAB PO PRN ×2 (09:29→20:58)
--- NOTE | 2017-08-09 10:10 | Physical Therapy Daily Note ---
PT Daily Note-Current Subjective Pt sitting up in bed visiting with Nurse upon arrival. Pt agrees to PT. Pt reports chest soreness. Pain Numeric Pain Scale: 6 Location Body Site: Chest Pain Description: Ache, Tightness Mental Status Patient Orientation: Person, Place, Time, Situation Transfers Functional [place] Measure 0=Not Assessed/NA 4=Minimal Assistance 1=Total Assistance 5=Supervision or Setup 2=Maximal Assistance 6=Modified [place] 3=Moderate Assistance 7=Complete IndependenceIRFPAI Quality Coding Scale 6 Independent with activity with or without an assistive device 5 Patient requires set up or clean up by helper. Patient completes activity by themselves 4 Supervision or touching assist (CGA). [place] provide cues , steadying assist 3 The helper provides less than half the effort to complete the activity 2 The helper provides more than half the effort to complete the activity 1 Dependent. The helper does all the effort to complete an activity 7 Patient refused to complete or attempt activity 9 The patient did not perform the activity before the current illness or injury 88 Not attempted due to Medical conditions or safety concerns Scootin Rollin Roll Left to Right (QC): 5 Supine to/from Sit: 5 Sit to/from Stand: 5 Sit to Stand (QC): 5 Chair/Kqg-wq-Pfgkv Xfer(QC): 5 Bed to/from Chair: 5 Weight Bearing Left Lower Extremity: Left Full Weight Bearing Wheelchair Training Does the Pt Use a Wheelchair?: Yes Wheelchair Distance: 1=up to 49 ft Distance: 40' Wheelchair Level of Assist: 5 Type of Wheelchair: Manual Exercises Supine Ex: Ankle pumps Supine Reps: 15 Seated Therapy Exercises: Sit to stand Treatments Pt transfers from Supine to sitting up in bed at SBA. Nurse gives morning meds then Pt completes AP in bed before needing to use restroom. After using restroom, pt returns to [facility] to eat breakfast. Pt stretches L hamstring & calf due to tightness. Pt sitting in [facility], eating breakfast at end of tx with all needs met. Assessment Current Status: Good Progress Pt is SBA to transfer and is getting stronger and more independent with Exercises. PT Short Term Goals Short Term Goals Time Frame: Aug 07, 2017 Transfers (B,C,W/C) (FIM): 6 Wheelchair (FIM): 6 Wheelchair Distance: 300' Wheelchair Level of Assist: 6 PT Fpc Goals Fpc Goals PT Fpc Goals Time Frame: Aug 14, 2017 Transfers (B,C,W/C) (FIM): 6 Sit to Lying (QC): 6 Lying-Sitting on Side/Bed(QC): 6 Sit to Stand (QC): 6 Rollin Roll Left to Right (QC): 6 Chair/Gfj-jo-Oqihi Xfer(QC): 6 Car Transfer (QC): 6 Does the Patient Walk: Yes Gait (FIM): 2 Distance: 50' Walk 10 feet (QC): 6 Walk 10ft-Uneven Surface(QC): 6 Walk 50ft with 2 Turns (QC): 6 Gait Level of Assist: 6 Does the Pt use WC or Scooter?: Yes Wheelchair (FIM): 6 Distance: 300 feet Wheelchair Level of Assist: 6 Wheel 50 feet with 2 turns (QC: 6 PT Plan Problem List Problem List: Activity Tolerance, Functional Strength, Gait Treatment/Plan Treatment Plan: Continue Plan of Care Treatment Plan: Bed Mobility, Education, Functional Activity Agustín, Functional Strength, Group Therapy, Gait, Safety, Therapeutic Exercise, Transfers Treatment Duration: Aug 21, 2017 Frequency: At least 5 of 7 days/Wk (IRF) Estimated Hrs Per Day: 1.5 hours per day Patient and/or Family Agrees t: Yes Safety Risks/Education Patient Education: Correct Positioning, Safety Issues Teaching Recipient: Patient Teaching Methods: Discussion Response to Teaching: Verbalize Understanding Time/GCodes Time In: 925 Time Out: 948 Total Billed Treatment Time: 23 Total Billed Treatment 1, FA (13m) & EX (10m) BIGG WILKINS PTA Aug 09, 2017 10:10
[2017-08-09] MEDS: IBUPROFEN 800 MG (MOTRIN) TAB PO SCH ×3 (12:07→23:08)
[2017-08-09] MEDS: ALPRAZolam 0.5 MG (XANAX) TAB PO PRN (17:16)
[2017-08-09 18:00] VITALS: BP 124/74
[2017-08-09] MEDS: ATORVASTATIN 40 MG (LIPITOR) TABLET PO SCH (20:57)
[2017-08-09] MEDS: ZOLPIDEM 5 MG (AMBIEN) TAB PO SCH (20:58)
[2017-08-09] MEDS: BACLOFEN 10 MG (LIORESAL) TAB PO PRN (20:58)
[2017-08-10 05:06] VITALS: BP 95/60
[2017-08-10] MEDS: IBUPROFEN 800 MG (MOTRIN) TAB PO SCH ×4 (05:49→23:23)
[2017-08-10 10:37] VITALS: BP 119/75
[2017-08-10] MEDS: meTOprolol TARTRATE 25 MG (LOPRESSOR) TABLET PO SCH ×2 (10:40→22:03)
[2017-08-10] MEDS: CLOPIDOGREL 75 MG (PLAVIX) TABLET PO SCH (10:41)
[2017-08-10] MEDS: HYDROcodone/APAP 10 MG/325 MG (LORTAB) TAB PO PRN ×2 (10:41→22:03)
[2017-08-10] MEDS: ASPIRIN E.C. 81 MG (ECOTRIN) TAB PO SCH (10:41)
[2017-08-10] MEDS: SENNA W/DOCUSATE (SENOKOT S) TABLET PO SCH ×2 (10:41→22:02)
[2017-08-10] MEDS: lisINopril 20 MG (PRINIVIL) TABLET PO SCH (10:41)
[2017-08-10] MEDS: ALPRAZolam 0.5 MG (XANAX) TAB PO PRN (15:13)
[2017-08-10] MEDS: FAMOTIDINE 20 MG (PEPCID) TABLET PO PRN (17:15)
[2017-08-10 18:00] VITALS: BP 101/64
[2017-08-10] MEDS: ATORVASTATIN 40 MG (LIPITOR) TABLET PO SCH (22:02)
[2017-08-10] MEDS: ZOLPIDEM 5 MG (AMBIEN) TAB PO SCH (22:03)
[2017-08-10] MEDS: BACLOFEN 10 MG (LIORESAL) TAB PO PRN (22:03)
[2017-08-11] MEDS: IBUPROFEN 800 MG (MOTRIN) TAB PO SCH ×4 (05:05→23:31)
[2017-08-11 06:51] VITALS: BP 95/62
--- NOTE | 2017-08-11 08:28 | Progress Note (SOAP) ---
Subjective Time Seen by Provider: 08:28 Subjective/Events-last exam Patient has drainage probable Escherichia coli. To check sensitivity today. To use ointment and pills Objective Exam Vital Signs Date Time Temp Pulse Resp B/P (MAP) Pulse Ox O2 Delivery O2 Flow Rate FiO2 08/11/17 06:51 97.7 58 19 95/62 (73) 98 Room Air 08/10/17 20:15 Room Air 08/10/17 18:00 97.4 71 18 101/64 (76) 98 Room Air 08/10/17 10:40 Room Air 08/10/17 10:37 76 119/75 (90) I & O 08/11/17 07:00 Intake Total 1050 ml Balance 1050 ml Capillary Refill : Less Than 3 Seconds General Appearance: No Apparent Distress, WD/WN HEENT: Normal ENT Inspection Neck: Full Range of Motion Respiratory: Lungs Clear, No Accessory Muscle Use, No Respiratory Distress Cardiovascular: Regular Rate, Rhythm Results Lab Microbiology 08/10/17 Gram Stain - Final, Resulted 08/10/17 Wound Culture - Preliminary, Resulted Probable E.coli Probable Coag Negative Staph Assessment/Plan Assessment/Plan Assess & Plan/Chief Complaint None elevated ST [place]. CABG. BKA right leg. History of tobacco usage. Previous AAA surgery. . 08/04/17. Non-ST elevated AK. CABG. BKA right leg. History of tobacco usage. Previous AAA surgery. Patient feels he is improving . 08/05/17 non-ST elevated AK. CABG. BKA right leg. Previous AAA surgery wound is looking good The risks and benefits of an exercise program were discussed with the patient. The benefits including improving overall health, maintaining fitness, and preventing the development of obesity, hypertension, and cardiovascular disease were discussed. Incidental benefits such as improved self-esteem and self- confidence and improved life expectancy were discussed. 08/06/17. Non-ST elevated [place]. CABG. BKA right leg. half jennifer removed looking good . . 08/07/17 non-ST elevated [place]. CABG. BKA L right leg. to remove the rest of the jennifer tomorrow. . 08/08/17. Non-ST elevated [place]. CABG. BKA leg. patient getting stronger . 08/11/17. Non-ST elevated [place]. CABG. BKA leg. Patient has drainage from suture removal. Abscess open. His Escherichia coli waiting for sensitivity Clinical Quality Measures DVT/VTE Risk/Contraindication: Risk Factor Score Per Nursin RFS Level Per Nursing on Admit: 4+=Very High YURY ELIZONDO DO Aug 11, 2017 08:28
[2017-08-11] MEDS: CLOPIDOGREL 75 MG (PLAVIX) TABLET PO SCH (08:59)
[2017-08-11] MEDS: ASPIRIN E.C. 81 MG (ECOTRIN) TAB PO SCH (08:59)
[2017-08-11] MEDS: SENNA W/DOCUSATE (SENOKOT S) TABLET PO SCH ×3 (09:03→21:13)
[2017-08-11] MEDS: HYDROcodone/APAP 10 MG/325 MG (LORTAB) TAB PO PRN ×2 (09:03→21:18)
[2017-08-11 09:07] VITALS: BP 111/69
[2017-08-11] MEDS: meTOprolol TARTRATE 25 MG (LOPRESSOR) TABLET PO SCH ×2 (09:09→21:13)
[2017-08-11] MEDS: lisINopril 20 MG (PRINIVIL) TABLET PO SCH (09:09)
[2017-08-11 10:08] LABS: CALCIUM 9.4 MG/DL (8.5-10.1); CREATININE SERUM 1.24 MG/DL (0.60-1.30); POTASSIUM 4.5 MMOL/L (3.6-5.0)
--- NOTE | 2017-08-11 10:27 | Physical Therapy Daily Note ---
PT Daily Note-Current Subjective Pt. very pleasant and extremely talkative today. Anxious to go home and expresses that he is very grateful to everyone for their care. Pain Numeric Pain Scale: 0-No Pain Comment: states he has soreness inhamstrings and quads left from w/c mobility Mental Status Patient Orientation: Normal For Age Transfers Functional [place] Measure 0=Not Assessed/NA 4=Minimal Assistance 1=Total Assistance 5=Supervision or Setup 2=Maximal Assistance 6=Modified [place] 3=Moderate Assistance 7=Complete IndependenceIRFPAI Quality Coding Scale 6 Independent with activity with or without an assistive device 5 Patient requires set up or clean up by helper. Patient completes activity by themselves 4 Supervision or touching assist (CGA). [place] provide cues , steadying assist 3 The helper provides less than half the effort to complete the activity 2 The helper provides more than half the effort to complete the activity 1 Dependent. The helper does all the effort to complete an activity 7 Patient refused to complete or attempt activity 9 The patient did not perform the activity before the current illness or injury 88 Not attempted due to Medical conditions or safety concerns Transfers (B, C, W/C) (FIM): 6 Scootin Rollin Roll Left to Right (QC): 6 Supine to/from Sit: 6 Sit to/from Stand: 6 Sit to Lying (QC): 6 Sit to Stand (QC): 6 Chair/Qnc-ae-Zbnsg Xfer(QC): 6 Bed to/from Chair: 6 Car Transfer (QC): 6 SPTs all Mod I Weight Bearing Left Lower Extremity: Left Full Weight Bearing Gait Training Does the Patient Walk?: No and Walking Goal NOT indicated Wheelchair Training Does the Pt Use a Wheelchair?: Yes Wheelchair (FIM): 6 Wheelchair Distance: 3=150 ft ([id number]) Wheelchair Level of Assist: 6 Wheel 50 ft with 2 turns (QC): 6 Wheel 150 ft (QC): 6 Type of Wheelchair: Manual forward back up down ramp etc, tight areas for fig 8s etc Exercises Supine Ex: Bridging, Ankle pumps, Quad Set, Rolling, Glut sets, Heel Slides, Short Arc Quads, Scooting, Straight leg raise, Hip abd/add Supine Reps: 20 Seated Therapy Exercises: Ankle pumps, Sit to stand, Long arc quads, Hip flexion Seated Reps: 20 Assessment Current Status: Excellent Progress much less discomfort in chest incision area, increased strength for w/c mob and TRFs, happier, better attitude PT Short Term Goals Short Term Goals Time Frame: Aug 07, 2017 Transfers (B,C,W/C) (FIM): 6 Wheelchair (FIM): 6 Wheelchair Distance: 40' Wheelchair Level of Assist: 6 PT Reexaminer Goals Fpc Goals PT Fpc Goals Time Frame: Aug 14, 2017 Transfers (B,C,W/C) (FIM): 6 Sit to Lying (QC): 6 Lying-Sitting on Side/Bed(QC): 6 Sit to Stand (QC): 6 Rollin Roll Left to Right (QC): 6 Chair/Cfp-dv-Lkxhp Xfer(QC): 6 Car Transfer (QC): 6 Does the Patient Walk: Yes Gait (FIM): 2 Distance: 50' Walk 10 feet (QC): 6 Walk 10ft-Uneven Surface(QC): 6 Walk 50ft with 2 Turns (QC): 6 Gait Level of Assist: 6 Does the Pt use WC or Scooter?: Yes Wheelchair (FIM): 6 Distance: 300 feet Wheelchair Level of Assist: 6 Wheel 50 feet with 2 turns (QC: 6 PT Plan Treatment/Plan Treatment Plan: Continue Plan of Care Treatment Plan: Bed Mobility, Education, Functional Activity Agustín, Functional Strength, Group Therapy, Gait, Safety, Therapeutic Exercise, Transfers Treatment Duration: Aug 21, 2017 Frequency: At least 5 of 7 days/Wk (IRF) Estimated Hrs Per Day: 1.5 hours per day Patient and/or Family Agrees t: Yes Safety Risks/Education Patient Education: Transfer Techniques, Correct Positioning, W/C Management, Disease Process, Safety Issues Teaching Recipient: Patient Teaching Methods: Demonstration, Discussion Response to Teaching: Verbalize Understanding, Return Demonstration Time/GCodes Time In: 930 Time Out: 1030 Total Billed Treatment Time: 60 Total Billed Treatment 1,WC25m,FA15m,EX20m G Codes Necessary: CHRISTINA Ramachandran CIRCULATION MAN Aug 11, 2017 10:27
[2017-08-11] MEDS: TRIM/SULFAMETH 160/800 (SEPTRA DS) TAB PO SCH ×2 (10:39→17:55)
--- NOTE | 2017-08-11 11:52 | Occupational Ther Daily Note ---
OT Current Status-Daily Note Subjective Pt. states that he is concerned regarding his wound on right residual limb. States that it was draining over the weekend, and that he was told not to shower yesterday. Pt. states that a culture was performed, and he is waiting to hear. Appearance Pt. agrees to go to bathroom to complete spongebath and dress, but declines showering until he knows if he has an infection. Mental Status/Objective Patient Orientation: Person, Place, Time Functional [place] Measure 0=Not Assessed/NA 4=Minimal Assistance 1=Total Assistance 5=Supervision or Setup 2=Maximal Assistance 6=Modified [place] 3=Moderate Assistance 7=Complete [place] ADL-Treatment Functional [place] Measure 0=Not Assessed/NA 4=Minimal Assistance 1=Total Assistance 5=Supervision or Setup 2=Maximal Assistance 6=Modified [place] 3=Moderate Assistance 7=Complete IndependenceIRFPAI Quality Coding Scale 6 Independent with activity with or without an assistive device 5 Patient requires set up or clean up by helper. Patient completes activity by themselves 4 Supervision or touching assist (CGA). [place] provide cues , steadying assist 3 The helper provides less than half the effort to complete the activity 2 The helper provides more than half the effort to complete the activity 1 Dependent. The helper does all the effort to complete an activity 7 Patient refused to complete or attempt activity 9 The patient did not perform the activity before the current illness or injury 88 Not attempted due to Medical conditions or safety concerns Grooming (FIM): 6 (Pt. is able to complete all grooming tasks from wheelchair level at sink.) Oral Hygiene (QC): 6 Bathing (FIM): 6 (Pt. takes his own bath pack to sink. Completed full bathing task at sink level from wheelchair.) Shower/Bathe Self (QC): 6 Upper Body (FIM): 6 Upper Body Dressing (QC): 6 (Pt. is able to doff/don sock, shoe, underwear, and pants from wheelchair level with no safety concerns.) Lower Body Dressing (FIM): 6 Lower Body Dressing (QC): 6 On/Off Footwear (QC): 6 Toileting (FIM): 6 (While seated.) Toileting Hygiene (QC): 6 Transfers (B, C, W/C) (FIM): 6 Toilet/Commode Transfer (FIM): 6 Toilet Transfer (QC): 6 Education OT Patient Education: Correct positioning, Modified ADL techniques, Progress toward Goal/Update tx plan, Purpose of tx/functional activities, Reviewed precautions, Rehab process, Transfer techniques Teaching Recipient: Patient Teaching Methods: Demonstration, Discussion Response to Teaching: Verbalize Understanding, Return Demonstration OT Short Term Goals Short Term Goals Time Frame: Aug 07, 2017 Eating(FIM): 5 Grooming(FIM): 5 Bathing(FIM): 4 Upper Body Dressing(FIM): 5 Lower Body Dressing(FIM): 4 Toileting(FIM): 4 Transfers (B,C,W/C) (FIM): 6 Toilet/Commode Transfer(FIM): 4 Shower Transfer(FIM): 4 Additional Short Term Goals: 1-Demonstrate ADL Tasks, 2-Verbalize Understanding , 3-ImproveStrength/Agustín 1=Demonstrate adherence to instructed precautions during ADL tasks. 2=Patient will verbalize/demonstrate understanding of assistive devices/ modifications for ADL. 3=Patient will improve strength/tolerance for activity to enable patient to perform ADL's. OT Care Home Goals Field Services Analyst Goals Time Frame: Aug 21, 2017 Eating (FIM): 6 Eating (QC): 6 Groomin Oral Hygiene (QC): 6 Bathing(FIM): 5 Shower/Bathe Self (QC): 5 Upper Body Dressing(FIM): 6 Upper Body Dressing (QC): 6 Lower Body Dressing(FIM): 6 Lower Body Dressing (QC): 6 On/Off Footwear (QC): 6 Toileting(FIM): 6 Toileting Hygiene (QC): 6 Transfers (B,C,W/C) (FIM): 6 Toilet/Commode Transfer(FIM): 6 Toilet/Commode Transfer (QC): 6 Shower Transfer(FIM): 5 Additional Goals: 1-Demonstrate ADL Tasks, 2-Verbalize Understanding, 3- ImproveStrength/Agustín 1=Demonstrate adherence to instructed precautions during ADL tasks. 2=Patient will verbalize/demonstrate understanding of assistive devices/ modifications for ADL. 3=Patient will improve strength/tolerance for activity to enable patient to perform ADL's. OT Education/Plan Problem List/Assessment Assessment: Decreased Activ Tolerance Discharge Recommendations Plan/Recommendations: Continue POC Therapy D/C Recommendations: Home w/ Family Support, Occupational Therapy Home Care Treatment Plan/Plan of Care Treatment,Training & Education: Yes Patient would benefit from OT for education, treatment and training to promote independence in ADL's, mobility, safety and/or upper extremity function for ADL' s. Plan of Care: ADL Retraining, Functional Mobility, Group Exercise/Act as Ind, UE Funct Exercise/Act Treatment Duration: Aug 21, 2017 Frequency: At least 5 of 7 days/Wk (IRF) Estimated Hrs Per Day: 1.5 hours per day Agreement: Yes Rehab Potential: Good Time/GCodes Start Time: 08:15 Stop Time: 09:15 Total Time Billed (hr/min): 60 Billed Treatment Time 1, ADL x 4 BRUCE FUENTES OT Aug 11, 2017 11:52
--- NOTE | 2017-08-11 13:30 | Physical Therapy Daily Note ---
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 Anxious to go home. Pain Numeric Pain Scale: 0-No Pain Mental Status Patient Orientation: Normal For Age Transfers Functional [place] Measure 0=Not Assessed/NA 4=Minimal Assistance 1=Total Assistance 5=Supervision or Setup 2=Maximal Assistance 6=Modified [place] 3=Moderate Assistance 7=Complete IndependenceIRFPAI Quality Coding Scale 6 Independent with activity with or without an assistive device 5 Patient requires set up or clean up by helper. Patient completes activity by themselves 4 Supervision or touching assist (CGA). [place] provide cues , steadying assist 3 The helper provides less than half the effort to complete the activity 2 The helper provides more than half the effort to complete the activity 1 Dependent. The helper does all the effort to complete an activity 7 Patient refused to complete or attempt activity 9 The patient did not perform the activity before the current illness or injury 88 Not attempted due to Medical conditions or safety concerns TRFd in out psuedo truck TRF with hi lo table up very high, and objects representing truck door and floor board etc. All observed with SBA, no LOB Weight Bearing Left Lower Extremity: Left Full Weight Bearing Wheelchair Training Type of Wheelchair: Manual using LLE and martin UEs to propel to from gym etc, good control Exercises Seated Therapy Exercises: Ankle pumps, Sit to stand, Long arc quads, Hip flexion Seated Reps: 12 Assessment Current Status: Good Progress meets goals PT Short Term Goals Short Term Goals Time Frame: Aug 07, 2017 Transfers (B,C,W/C) (FIM): 6 Wheelchair (FIM): 6 Wheelchair Distance: 40' Wheelchair Level of Assist: 6 PT Er Medical Technician Goals Er Medical Technician Goals PT Er Medical Technician Goals Time Frame: Aug 14, 2017 Transfers (B,C,W/C) (FIM): 6 Sit to Lying (QC): 6 Lying-Sitting on Side/Bed(QC): 6 Sit to Stand (QC): 6 Rollin Roll Left to Right (QC): 6 Chair/Omf-bu-Xhhqm Xfer(QC): 6 Car Transfer (QC): 6 Does the Patient Walk: Yes Gait (FIM): 2 Distance: 50' Walk 10 feet (QC): 6 Walk 10ft-Uneven Surface(QC): 6 Walk 50ft with 2 Turns (QC): 6 Gait Level of Assist: 6 Does the Pt use WC or Scooter?: Yes Wheelchair (FIM): 6 Distance: 300 feet Wheelchair Level of Assist: 6 Wheel 50 feet with 2 turns (QC: 6 PT Plan Treatment/Plan Treatment Plan: Continue Plan of Care Treatment Plan: Bed Mobility, Education, Functional Activity Agustín, Functional Strength, Group Therapy, Gait, Safety, Therapeutic Exercise, Transfers Treatment Duration: Aug 21, 2017 Frequency: At least 5 of 7 days/Wk (IRF) Estimated Hrs Per Day: 1.5 hours per day Patient and/or Family Agrees t: Yes Safety Risks/Education Patient Education: Transfer Techniques, Correct Positioning, W/C Management, Safety Issues Teaching Recipient: Patient Teaching Methods: Demonstration, Discussion Response to Teaching: Verbalize Understanding, Return Demonstration Time/GCodes Time In: 1300 Time Out: 1330 Total Billed Treatment Time: 30 Total Billed Treatment 1,FA30m G Codes Necessary: CHRISTINA Ramachandran PARTNERSHIP DEVELOPMENT MANAGER Aug 11, 2017 13:30
--- NOTE | 2017-08-11 16:41 | Occupational Ther Daily Note ---
OT Current Status-Daily Note Subjective No pain reported. Appearance Pt. up in wheelchair. Agrees to work with OT. Mental Status/Objective Patient Orientation: Person, Place, Time, Situation Functional [place] Measure 0=Not Assessed/NA 4=Minimal Assistance 1=Total Assistance 5=Supervision or Setup 2=Maximal Assistance 6=Modified [place] 3=Moderate Assistance 7=Complete [place] ADL-Treatment Functional [place] Measure 0=Not Assessed/NA 4=Minimal Assistance 1=Total Assistance 5=Supervision or Setup 2=Maximal Assistance 6=Modified [place] 3=Moderate Assistance 7=Complete IndependenceIRFPAI Quality Coding Scale 6 Independent with activity with or without an assistive device 5 Patient requires set up or clean up by helper. Patient completes activity by themselves 4 Supervision or touching assist (CGA). Eunice provide cues , steadying assist 3 The helper provides less than half the effort to complete the activity 2 The helper provides more than half the effort to complete the activity 1 Dependent. The helper does all the effort to complete an activity 7 Patient refused to complete or attempt activity 9 The patient did not perform the activity before the current illness or injury 88 Not attempted due to Medical conditions or safety concerns Other Treatment Pt. up in wheelchair. Self propelled to therapy gym independently. Tolerated 15 minutes on armbike with several brief rest breaks to increase overall strength and independence. Tolerated at min/mod resistance with emphasis to not break sternal precautions. Pt. and OT discussed new food choices and lifestyle changes, as pt. states that this heart surgery, "really scared me." Pt. states that his sister will be coming over to cook for him and help to prepare healthy dishes. All needs met back in room and pt. transferred to bed with Mod I. Education OT Patient Education: Correct positioning, Exercise program, Modified ADL techniques, Progress toward Goal/Update tx plan, Purpose of tx/functional activities, Reviewed precautions, Rehab process, Transfer techniques Teaching Recipient: Patient Teaching Methods: Demonstration, Discussion Response to Teaching: Verbalize Understanding, Return Demonstration OT Short Term Goals Short Term Goals Time Frame: Aug 07, 2017 Eating(FIM): 5 Grooming(FIM): 5 Bathing(FIM): 4 Upper Body Dressing(FIM): 5 Lower Body Dressing(FIM): 4 Toileting(FIM): 4 Transfers (B,C,W/C) (FIM): 6 Toilet/Commode Transfer(FIM): 4 Shower Transfer(FIM): 4 Additional Short Term Goals: 1-Demonstrate ADL Tasks, 2-Verbalize Understanding , 3-ImproveStrength/Agustín 1=Demonstrate adherence to instructed precautions during ADL tasks. 2=Patient will verbalize/demonstrate understanding of assistive devices/ modifications for ADL. 3=Patient will improve strength/tolerance for activity to enable patient to perform ADL's. OT Shelter Goals City Recorder Goals Time Frame: Aug 21, 2017 Eating (FIM): 6 Eating (QC): 6 Groomin Oral Hygiene (QC): 6 Bathing(FIM): 5 Shower/Bathe Self (QC): 5 Upper Body Dressing(FIM): 6 Upper Body Dressing (QC): 6 Lower Body Dressing(FIM): 6 Lower Body Dressing (QC): 6 On/Off Footwear (QC): 6 Toileting(FIM): 6 Toileting Hygiene (QC): 6 Transfers (B,C,W/C) (FIM): 6 Toilet/Commode Transfer(FIM): 6 Toilet/Commode Transfer (QC): 6 Shower Transfer(FIM): 5 Additional Goals: 1-Demonstrate ADL Tasks, 2-Verbalize Understanding, 3- ImproveStrength/Agustín 1=Demonstrate adherence to instructed precautions during ADL tasks. 2=Patient will verbalize/demonstrate understanding of assistive devices/ modifications for ADL. 3=Patient will improve strength/tolerance for activity to enable patient to perform ADL's. OT Education/Plan Problem List/Assessment Assessment: Impaired I ADL's Discharge Recommendations Plan/Recommendations: Continue POC Therapy D/C Recommendations: Home w/ Family Support, Occupational Therapy Home Care Treatment Plan/Plan of Care Treatment,Training & Education: Yes Patient would benefit from OT for education, treatment and training to promote independence in ADL's, mobility, safety and/or upper extremity function for ADL' s. Plan of Care: ADL Retraining, Functional Mobility, Group Exercise/Act as Ind, UE Funct Exercise/Act Treatment Duration: Aug 21, 2017 Frequency: At least 5 of 7 days/Wk (IRF) Estimated Hrs Per Day: 1.5 hours per day Agreement: Yes Rehab Potential: Good Time/GCodes Start Time: 13:30 Stop Time: 14:00 Total Time Billed (hr/min): 30 Billed Treatment Time 1, EX x 2 BRUCE FUENTES OT Aug 11, 2017 16:41
--- NOTE | 2017-08-11 19:41 | PM & R (SOAP) Progress Note ---
Subjective Time Seen by Provider: 19:00 Subjective/Events-last exam Patient was seen in his room this evening Patient SBA for transfers Patient with dehiscence of right thigh incision site with drainage Antibiotic started Objective Exam Last Set of Vital Signs Vital Signs Date Time Temp Pulse Resp B/P (MAP) Pulse Ox O2 Delivery O2 Flow Rate FiO2 08/11/17 09:07 97.3 69 20 111/69 (83) Room Air 08/11/17 06:51 98 Capillary Refill : Less Than 3 Seconds I&O Intake and Output 08/11/17 00:00 Intake Total 1200 ml Balance 1200 ml Intake Oral 1200 ml # Voids 5 General: Alert, Oriented X3, Cooperative, No Acute Distress HEENT: Atraumatic, PERRLA, EOMI, Mucous Memb Moist/[place] Neck: Supple, No JVD Lungs: Clear to Auscultation Heart: Regular Rate Abdomen: Normal Bowel Sounds, Soft, No Tenderness Extremities: Other (RT BKA) Skin: Other ( Drainage rt thigh) Neuro: Other (Good strength but some guarding due to Sternotomy incision site) Results Lab Laboratory Tests 08/11/17 09:40: Sodium Level 137, Potassium Level 4.5, Chloride Level 104, Carbon Dioxide Level 23, Anion Gap 10, Blood Urea Nitrogen 19H, Creatinine 1.24, Estimat Glomerular Filtration Rate 60, BUN/Creatinine Ratio 15, Glucose Level 110H, Calcium Level 9.4 Microbiology 08/10/17 Gram Stain - Final, Resulted 08/10/17 Wound Culture - Preliminary, Resulted Escherichia coli Probable Coag Negative Staph Assessment/Plan Assessment CAD s/p Cabg times 3 DR sheyla Hearn[place]in S/P NSTEMI TRaumatic amputaion rt BKA age 14 yo AAA without rupture HTN controlled Tobaccoism Bilateral Carotid Artery D Old rt hand injury Postop constipation Muscle strain-improved Plan Continue PT/OT/Pain management /Wound care Sternotomy precautions Constipation treated Trial of baclofen for spasms-done Patient practiced car transfers today Discharge remains set tetatively for tomorrow 08-12-17 as per above to home in [place] Check Incision site Continue antibiotics PAUL DODSON MD Aug 11, 2017 7:41 pm
[2017-08-11 20:30] VITALS: BP 133/97
[2017-08-11] MEDS: ATORVASTATIN 40 MG (LIPITOR) TABLET PO SCH (21:13)
[2017-08-11] MEDS: ZOLPIDEM 5 MG (AMBIEN) TAB PO SCH (21:13)
[2017-08-12 06:00] VITALS: BP 108/66
[2017-08-12] MEDS: TRIM/SULFAMETH 160/800 (SEPTRA DS) TAB PO SCH (06:40)
[2017-08-12] MEDS: IBUPROFEN 800 MG (MOTRIN) TAB PO SCH ×2 (06:41→11:24)
[2017-08-12 06:55] LABS: BASOPHILS # (AUTO) 0.1 10^3/uL (0.0-0.1); BASOPHILS % (AUTO) 1 % (0-10); EOSINOPHILS # (AUTO) 1.2 10^3/uL (0.0-0.3); EOSINOPHILS % (AUTO) 17 % (0-10); HEMATOCRIT 30 % (40-54); HEMOGLOBIN 9.5 G/DL (13.3-17.7); LYMPHOCYTES # (AUTO) 1.8 X 10^3 (1.0-4.0); LYMPHOCYTES % (AUTO) 25 % (12-44); MEAN CORPUSCULAR HEMOGLOBIN 31 PG (25-34); MEAN CORPUSCULAR HGB CONC 32 G/DL (32-36); MEAN CORPUSCULAR VOLUME 95 FL (80-99); MEAN PLATELET VOLUME 8.2 FL (7.4-10.4); MONOCYTES # (AUTO) 0.8 X 10^3 (0.0-1.0); MONOCYTES % (AUTO) 11 % (0-12); NEUTROPHILS # (AUTO) 3.3 X 10^3 (1.8-7.8); NEUTROPHILS % (AUTO) 46 % (42-75); PLATELET COUNT 531 10^3/uL (130-400); RED CELL DISTRIBUTION WIDTH 14.2 % (10.0-14.5); WHITE BLOOD COUNT 7.1 10^3/uL (4.3-11.0)
[2017-08-12 07:19] LABS: CALCIUM 9.6 MG/DL (8.5-10.1); CREATININE SERUM 1.26 MG/DL (0.60-1.30)
--- NOTE | 2017-08-12 07:56 | Progress Note (SOAP) ---
Subjective Time Seen by Provider: 07:50 Subjective/Events-last exam Patient to be discharged today and excited about this. Drainage is minimal right leg. Waiting for sensitivity Objective Exam Vital Signs Date Time Temp Pulse Resp B/P (MAP) Pulse Ox O2 Delivery O2 Flow Rate FiO2 08/12/17 06:00 98.0 71 18 108/66 (80) 95 Room Air 08/11/17 21:00 Room Air 08/11/17 20:30 98.0 97 18 133/97 (109) Room Air 08/11/17 09:07 97.3 69 20 111/69 (83) Room Air 08/11/17 08:34 Room Air I & O 08/12/17 07:00 Intake Total 1600 ml Balance 1600 ml Capillary Refill : Less Than 3 Seconds General Appearance: No Apparent Distress, WD/WN HEENT: Normal ENT Inspection Neck: Full Range of Motion, Normal Inspection Respiratory: Chest Non Tender, No Accessory Muscle Use, No Respiratory Distress Cardiovascular: Regular Rate, Rhythm Gastrointestinal: non tender, soft Results Lab Laboratory Tests 08/11/17 09:40: Sodium Level 137, Potassium Level 4.5, Chloride Level 104, Carbon Dioxide Level 23, Anion Gap 10, Blood Urea Nitrogen 19H, Creatinine 1.24, Estimat Glomerular Filtration Rate 60, BUN/Creatinine Ratio 15, Glucose Level 110H, Calcium Level 9.4 08/12/17 06:34: Sodium Level 139, Potassium Level 5.0, Chloride Level 106, Carbon Dioxide Level 26, Anion Gap 7, Blood Urea Nitrogen 16, Creatinine 1.26, Estimat Glomerular Filtration Rate 59, BUN/Creatinine Ratio 13, Glucose Level 101, Calcium Level 9.6, White Blood Count 7.1, Red Blood Count 3.10L, Hemoglobin 9.5L, Hematocrit 30L, Mean Corpuscular Volume 95, Mean Corpuscular Hemoglobin 31, Mean Corpuscular Hemoglobin Concent 32, Red Cell Distribution Width 14.2, Platelet Count 531H, Mean Platelet Volume 8.2, Neutrophils (%) (Auto) 46, Lymphocytes (% ) (Auto) 25, Monocytes (%) (Auto) 11, Eosinophils (%) (Auto) 17H, Basophils (%) (Auto) 1, Neutrophils # (Auto) 3.3, Lymphocytes # (Auto) 1.8, Monocytes # (Auto ) 0.8, Eosinophils # (Auto) 1.2H, Basophils # (Auto) 0.1 Microbiology 08/10/17 Gram Stain - Final, Resulted 08/10/17 Wound Culture - Preliminary, Resulted Escherichia coli Probable Coag Negative Staph Assessment/Plan Assessment/Plan Assess & Plan/Chief Complaint None elevated ST NV. CABG. BKA right leg. History of tobacco usage. Previous AAA surgery. . 08/04/17. Non-ST elevated NV. CABG. BKA right leg. History of tobacco usage. Previous AAA surgery. Patient feels he is improving . 08/05/17 non-ST elevated NV. CABG. BKA right leg. Previous AAA surgery wound is looking good The risks and benefits of an exercise program were discussed with the patient. The benefits including improving overall health, maintaining fitness, and preventing the development of obesity, hypertension, and cardiovascular disease were discussed. Incidental benefits such as improved self-esteem and self- confidence and improved life expectancy were discussed. 08/06/17. Non-ST elevated NV. CABG. BKA right leg. half jennifer removed looking good . . 08/07/17 non-ST elevated NV. CABG. BKA L right leg. to remove the rest of the jennifer tomorrow. . 08/08/17. Non-ST elevated NV. CABG. BKA leg. patient getting stronger . 08/11/17. Non-ST elevated NV. CABG. BKA leg. Patient has drainage from suture removal. Abscess open. His Escherichia coli waiting for sensitivity. . 08/12/17. Non-ST elevated NV. CABG. BKA leg. Has minimal drainage now from suture site Clinical Quality Measures DVT/VTE Risk/Contraindication: Risk Factor Score Per Nursin RFS Level Per Nursing on Admit: 4+=Very High YURY ELIZONDO DO Aug 12, 2017 07:56
[2017-08-12] MEDS: lisINopril 20 MG (PRINIVIL) TABLET PO SCH (08:11)
[2017-08-12] MEDS: CLOPIDOGREL 75 MG (PLAVIX) TABLET PO SCH (08:11)
[2017-08-12] MEDS: ASPIRIN E.C. 81 MG (ECOTRIN) TAB PO SCH (08:11)
[2017-08-12] MEDS: meTOprolol TARTRATE 25 MG (LOPRESSOR) TABLET PO SCH (08:11)
[2017-08-12] MEDS: SENNA W/DOCUSATE (SENOKOT S) TABLET PO SCH (08:11)
--- NOTE | 2017-08-12 08:26 | Therapy Team Discharge Summary ---
Therapy Discharge Summary Discharge Recommendations Date of Discharge 08-12-17 Therapy D/C Recommendations: Home w/ Family Support, Occupational Therapy Home Care Occupational Therapy Pt. has been seen by occupational therapy to increase overall strength and independence. Pt. has met all goals. Pt. is able to bathe/dress with mod I, using wheelchair as support. Pt. would benefit from home health OT evaluation to make sure all needs are met in the home. Pt. would benefit from wheelchair. Impaired I ADL's PT Jail Goals Jail Goals PT Jail Goals Time Frame: Aug 14, 2017 Transfers (B,C,W/C) (FIM): 6 Roll Left to Right (QC): 6 Sit to Lying (QC): 6 Lying-Sitting on Side/Bed(QC): 6 Sit to Stand (QC): 6 Chair/Zza-uq-Kwsku Xfer(QC): 6 Car Transfer (QC): 6 Does the Patient Walk: Yes Gait (FIM): 2 Distance: 50' Walk 10 feet (QC): 6 Walk 10ft-Uneven Surface(QC): 6 Walk 50ft with 2 Turns (QC): 6 Gait Level of Assist: 6 Does the Pt use WC or Scooter?: Yes Wheelchair (FIM): 6 Distance: 300 feet Wheelchair Level of Assist: 6 Wheel 50 feet with 2 turns (QC: 6 OT Jail Goals Highway Maintenance Crew Worker Goals Time Frame: Aug 21, 2017 Eating (FIM): 6 (met) Eating (QC): 6 (met) Oral Hygiene (QC): 6 (met) Grooming(FIM): 6 (met) Bathing(FIM): 5 (met) Shower/Bathe Self (QC): 5 (met) Upper Body Dressing(FIM): 6 (met) Upper Body Dressing (QC): 6 (met) Lower Body Dressing(FIM): 6 (met) Lower Body Dressing (QC): 6 (met) On/Off Footwear (QC): 6 (met) Toileting(FIM): 6 (met) Toileting Hygiene (QC): 6 (met) Transfers (B,C,W/C) (FIM): 6 (met) Toilet/Commode Transfer(FIM): 6 (met) Toilet/Commode Transfer (QC): 6 (met) Shower Transfer(FIM): 5 (met) Additional Goals: 1-Demonstrate ADL Tasks, 2-Verbalize Understanding, 3- ImproveStrength/Agustín 1=Demonstrate adherence to instructed precautions during ADL tasks. 2=Patient will verbalize/demonstrate understanding of assistive devices/ modifications for ADL. 3=Patient will improve strength/tolerance for activity to enable patient to perform ADL's. BRUCE FUENTES OT Aug 12, 2017 08:26
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
[2017-08-12] MEDS ORDERED: SULF1TAB35 PO (09:00)
[2017-08-12] MEDS ORDERED: BACL10TA PO (09:00)
[2017-08-12] MEDS ORDERED: CLOP75TA28 PO (09:00)
[2017-08-12] MEDS ORDERED: MUPI22OI2 TOP (09:00)
[2017-08-12] MEDS ORDERED: METO-333 PO (09:00)
[2017-08-12] MEDS ORDERED: ATOR40TA PO (09:00)
--- NOTE | 2017-08-12 09:30 | Therapy Team Discharge Summary ---
Therapy Discharge Summary Discharge Recommendations Date of Discharge Therapy D/C Recommendations: Home w/ Family Support, Occupational Therapy Home Care Physical Therapy Patient came to rehab following a CABG, he also has had a previous right AKA. Upon admission patient performed bed mobility with SBA, transfers with SBA, and propelled a manual wheelchair 150' with SBA. Patient has been performing bed mobility and transfer training, balance and endurance training, functional strengthening, wheelchair mobility, and education. Patient has made good progress and has met all of his fpc goals except for ambulation, which he cannot do and keep his sternal precautions. Now, patient is mod I with bed mobility, transfers, and wheelchair mobility. Patient is being discharged from this facility today and will be discharged from PT at this time. Occupational Therapy Impaired I ADL's PT Equipment Washer Goals Equipment Washer Goals PT Equipment Washer Goals Time Frame: Aug 14, 2017 Transfers (B,C,W/C) (FIM): 6 Roll Left to Right (QC): 6 Sit to Lying (QC): 6 Lying-Sitting on Side/Bed(QC): 6 Sit to Stand (QC): 6 Chair/Qpl-lq-Sjowc Xfer(QC): 6 Car Transfer (QC): 6 Does the Patient Walk: Yes Gait (FIM): 2 Distance: 50' Walk 10 feet (QC): 6 Walk 10ft-Uneven Surface(QC): 6 Walk 50ft with 2 Turns (QC): 6 Gait Level of Assist: 6 Does the Pt use WC or Scooter?: Yes Wheelchair (FIM): 6 Distance: 300 feet Wheelchair Level of Assist: 6 Wheel 50 feet with 2 turns (QC: 6 OT Fpc Goals Fpc Goals Time Frame: Aug 21, 2017 Eating (FIM): 6 (met) Eating (QC): 6 (met) Oral Hygiene (QC): 6 (met) Grooming(FIM): 6 (met) Bathing(FIM): 5 (met) Shower/Bathe Self (QC): 5 (met) Upper Body Dressing(FIM): 6 (met) Upper Body Dressing (QC): 6 (met) Lower Body Dressing(FIM): 6 (met) Lower Body Dressing (QC): 6 (met) On/Off Footwear (QC): 6 (met) Toileting(FIM): 6 (met) Toileting Hygiene (QC): 6 (met) Transfers (B,C,W/C) (FIM): 6 (met) Toilet/Commode Transfer(FIM): 6 (met) Toilet/Commode Transfer (QC): 6 (met) Shower Transfer(FIM): 5 (met) Additional Goals: 1-Demonstrate ADL Tasks, 2-Verbalize Understanding, 3- ImproveStrength/Agustín 1=Demonstrate adherence to instructed precautions during ADL tasks. 2=Patient will verbalize/demonstrate understanding of assistive devices/ modifications for ADL. 3=Patient will improve strength/tolerance for activity to enable patient to perform ADL's. JUDIE GUTIERREZ PT Aug 12, 2017 09:30
[2017-08-12 13:20] VITALS: BP 108/66
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
== END 2017-08-12 13:20 | disposition home or self-care (01) | DRG 281 ==
PROVIDERS: ADMIT Physical Medicine & Rehabilitation; ATTEND Physical Medicine & Rehabilitation
DX: I21.A1 Myocardial infarction type 2 (principal); Z95.1 Presence of aortocoronary bypass graft; I25.10 Atherosclerotic heart disease of native coronary artery without angina pectoris; I10 Essential (primary) hypertension; S39.012A Strain of muscle, fascia and tendon of lower back, initial encounter; T81.31XA Disruption of external operation (surgical) wound, not elsewhere classified, initial encounter; T81.4XXA Infection following a procedure, initial encounter; F17.210 Nicotine dependence, cigarettes, uncomplicated; I71.4 Abdominal aortic aneurysm, without rupture; I65.23 Occlusion and stenosis of bilateral carotid arteries; K21.9 Gastro-esophageal reflux disease without esophagitis; K59.09 Other constipation; A49.8 Other bacterial infections of unspecified site; Z89.511 Acquired absence of right leg below knee; Z87.828 Personal history of other (healed) physical injury and trauma; X50.9XXA Other and unspecified overexertion or strenuous movements or postures, initial encounter; Y92.239 Unspecified place in hospital as the place of occurrence of the external cause
CPT/HCPCS: 36415; 80048; 85025; 87070; 87077; 87186; 87205; 93005